=== PATIENT | female | born 1970 | race Caucasian/White ===

== ENCOUNTER 2016-05-09 11:43 | Inpatient (IN) | payer OTHER ==
[2016-05-09 12:01] VITALS: BMI 21.2
--- NOTE | 2016-05-09 13:09 | HP ---
COWS - Scale Resting Pulse: 1= [place] 81-100 Sweatin=Flushed/Facial Moisture Restless Observation: 1= Difficult to Sit Still Pupil Size: 0= Normal to Room Light Bone or Joint Aches: 2= Severe Diffuse Aches Runny Nose/ Eye Tearin= Runny Nose/Eyes GI Upset > 30mins: 1= Stomach Cramp Tremor Observation: 2= Slight Tremor Visible Yawning Observation: 2= >3x During Session Anxiety or Irritability: 2=Irritable/Anxious Goose Flesh Skin: 3=Piloerection COWS Score: 18 Admission ROS S - HPI Chief Complaint: I want to get clean. Allergies/Adverse Reactions: Allergies Allergy/AdvReac Type Severity Reaction Status Date / Time No Known Allergies Allergy Verified 05/09/16 12:52 History of Present Illness: pt is a 46yr old female with a history of heroin dependence seeking detox for treatment. Exam Limitations: No Limitations - Ebola screening Have you traveled outside of the country in the last 21 days: No Have you had contact with anyone from an Ebola affected area: No Have you been sick,other than usual withdrawal symptoms: No Do you have a fever: No - Review of Systems Constitutional: Chills, Diaphoresis, Loss of Appetite, Unintentional Wgt. Loss EENT: reports: Tearing, Nose Congestion Respiratory: reports: No Symptoms reported Cardiac: reports: No Symptoms Reported GI: reports: Poor Appetite, Poor Fluid Intake : reports: No Symptoms Reported Musculoskeletal: reports: Other (menstral pain/cramp) Integumentary: reports: Flushing, Sweating Neuro: reports: Headache, Tingling, Tremors Endocrine: reports: Excessive Sweating, Flushing, Intolerance to Cold, Intolerance to Heat Hematology: reports: No Symptoms Reported Psychiatric: reports: Judgement Intact, Mood/Affect Appropiate, Orientated x3, Agitated, Anxious Other Systems: Reviewed and Negative Patient History - Patient Medical History Hx Anemia: No Hx Asthma: No Hx Chronic Obstructive Pulmonary Disease (COPD): No Hx Cancer: No Hx Cardiac Disorders: No Hx Congestive Heart Failure: No Hx Hypertension: No Hx Hypercholesterolemia: No Hx Pacemaker: No HX Cerebrovascular Accident: No Hx Seizures: No Hx Dementia: No Hx Diabetes: No Hx Gastrointestinal Disorders: No Hx Liver Disease: No Hx Genitourinary Disorders: No Hx Sexually Transmitted Disorders: No Hx Renal Disease (ESRD): No Hx Thyroid Disease: No Hx Human Immunodeficiency Virus (HIV): No (negative) Hx Hepatitis C: No (negative) Hx Depression: Yes Hx Suicide Attempt: No (denies) Hx Bipolar Disorder: Yes Hx Schizophrenia: No - Patient Surgical History Past Surgical History: No Hx Neurologic Surgery: No Hx Cataract Extraction: No Hx Cardiac Surgery: No Hx Lung Surgery: No Hx Breast Surgery: No Hx Breast Biopsy: No Hx Abdominal Surgery: No Hx Appendectomy: No Hx Cholecystectomy: No Hx Genitourinary Surgery: No Hx Section: No Anesthesia Reaction: No - PPD History Previous Implant?: Yes Documented Results: Negative w/o proof Implanted On Prior R Admission?: No PPD to be Administered?: Yes - Reproductive History Patient is a Female of Child Bearing Age (11 -55 yrs old): Yes Last Menstrual Period: 05/07/16 Patient : No - Smoking Cessation Smoking history: Current every day smoker Have you smoked in the past 12 months: Yes Aproximately how many cigarettes per day: 10 Hx Chewing Tobacco Use: No Initiated information on smoking cessation: Yes 'Breaking Loose' booklet given: 05/09/16 - Substance & Tx. History Hx Alcohol Use: No Hx Substance Use: Yes Substance Use Type: Cocaine, Heroin Hx Substance Use Treatment: Yes - Substances Abused Heroin Route: Injection Frequency: Daily Amount used: 7-10 bags Age of first use: 45 Date of Last Use: 05/09/16 Crack Route: Smoking Frequency: 1-3 times last 30 days Amount used: $40 Age of first use: 45 Date of Last Use: 05/05/16 Family Disease History - Family Disease History Family History: Denies Admission Physical Exam S - Vital Signs Vital Signs: Vital Signs - 24 hr 05/09/16 11:55 Temperature 97.6 F Pulse Rate 86 Respiratory 18 Rate Blood Pressure 127/77 - Physical General Appearance: Yes: Appropriately Dressed, Moderate Distress, Tremorous, Irritable, Sweating, Anxious HEENTM: Yes: Hearing grossly Normal, Normal Voice Respiratory: Yes: Lungs Clear, Normal Breath Sounds, No Respiratory Distress Neck: Yes: No masses,lesions,Nodules Breast: Yes: Within Normal Limits Cardiology: Yes: Regular Rate, S1, S2 Abdominal: Yes: Normal Bowel Sounds, Non Tender, Soft Genitourinary: Yes: Within Normal Limits Back: Yes: Normal Inspection Musculoskeletal: Yes: full range of Motion, Muscle Pain Extremities: Yes: Normal Capillary Refill, Non-Tender, Tremors Neurological: Yes: Fully Oriented, Alert, Normal Response Integumentary: Yes: Normal Color, Diaphoresis, Track Jenkins Lymphatic: Yes: Within Normal Limits - Diagnostic (1) Crack cocaine use Current Visit: Yes Status: Chronic (2) Nicotine dependence Current Visit: Yes Status: Chronic Qualifiers: Nicotine product type: cigarettes Substance use status: uncomplicated Qualified Code(s): F17.210 - Nicotine dependence, cigarettes, uncomplicated (3) Opioid dependence with withdrawal Current Visit: Yes Status: Chronic Cleared for Admission [facility] - Detox or Rehab [facility] Level of Care: Medically Managed Detox Regimen/Protocol: Methadone [facility] Breath Alcohol Content Breath Alcohol Content: 0 Urine Pregancy Test - Result Urine Test Results: Negative- NO Line Present Urine Drug Screen - Results Drug Screen Negative: No Urine Drug Screen Results: TARAN-Cocaine, OPI-Opiates, MDMA-Ecstasy
[2016-05-09] MEDS ORDERED: hydrOXYzine PAMOATE 50 MG CAPSULE (FP) PO PRN (13:10)
[2016-05-09] MEDS ORDERED: IBUPROFEN 400 MG TABLET (FP) PO PRN (13:10)
[2016-05-09] MEDS ORDERED: MENTHOL/PHENOL 1 EACH UD MM PRN (13:10)
[2016-05-09] MEDS ORDERED: ACETAMINOPHEN 325 MG TABLET (FP) PO PRN (13:10)
[2016-05-09] MEDS ORDERED: NICOTINE POLACRILEX 4 MG GUM BUC PRN (13:10)
[2016-05-09] MEDS ORDERED: LOPERAMIDE HCL 2 MG CAPSULE PO PRN (13:10)
[2016-05-09] MEDS ORDERED: diphenhydrAMINE HCL 50 MG CAPSULE PO PRN (13:10)
[2016-05-09] MEDS ORDERED: guaiFENesin/D-METHORPHAN HB 10 ML UNIT-DOSE CUPS PO PRN (13:10)
[2016-05-09] MEDS ORDERED: MAGNESIUM CITRATE 300 ML BOTTLE PO PRN (13:10)
[2016-05-09] MEDS ORDERED: diazePAM 5 MG TABLET PO PRN (13:10)
[2016-05-09] MEDS ORDERED: MAG HYDROX/AL HYDROX/SIMETH 30 ML UNIT-DOSE CUP PO PRN (13:10)
[2016-05-09] MEDS ORDERED: P-EPHED 60MG/TRIPROLIDI 2.5MG TABLET PO PRN (13:10)
[2016-05-09] MEDS ORDERED: MAGNESIUM HYDROX 2400MG/30ML ORAL SUSPENSION 30 ML CUP PO PRN (13:10)
[2016-05-09] MEDS ORDERED: METHADONE HCL 10 MG TABLET (FOR DETOX USE ONLY) PO ONE ×2 (13:36→23:00)
[2016-05-09 16:02] LABS: URINE APPEARANCE TURBID; URINE BILIRUBIN NEGATIVE (NEGATIVE); URINE BLOOD 2+ (NEGATIVE); URINE COLOR DKYELLOW; URINE GLUCOSE (UA) NEGATIVE (NEGATIVE); URINE KETONE NEGATIVE (NEGATIVE); URINE LEUK ESTERASE NEGATIVE (NEGATIVE); URINE NITRITE NEGATIVE (NEGATIVE); URINE PROTEIN NEGATIVE (NEGATIVE); URINE UROBILINOGEN NEGATIVE E.U./dl (0.2-1.0)
[2016-05-09 16:14] LABS: CALCIUM OXALATE CRYSTALS RARE /hpf (NONE SEEN); URINE MUCUS MODERATE; URINE RBC 451 /hpf (0-3); URINE WBC 1 /hpf (3-5)
[2016-05-09] MEDS: THIAMINE HCL 100 MG TABLET (FP) PO SCH (22:08)
[2016-05-10 09:07] LABS: HIV 1 & 2 AB NEGATIVE; HIV 1 AGp24 NEGATIVE
--- NOTE | 2016-05-10 09:42 | PN ---
S COWS - Scale Resting Pulse: 0= [place] 80 or Below Sweatin=Flushed/Facial Moisture Restless Observation: 3= Extraneous Movement Pupil Size: 1= Pupils >than Normal Bone or Joint Aches: 2= Severe Diffuse Aches Runny Nose/ Eye Tearin= Runny Nose/Eyes GI Upset > 30mins: 2= Nausea/Diarrhea Tremor Observation of Outstretched Hands: 2= Slight Tremor Visible Yawning Observation: 1= 1-2x During Session Anxiety or Irritability: 2=Irritable/Anxious Goose Flesh Skin: 0=Smooth Skin COWS Score: 17 S Progress Note (SOAP) Subjective: ALERT,IRRITABLE,ANXIOUS,TREMOR,PAIN IN THE BODY AND BACK Objective: 05/10/16 09:40 Vital Signs Temperature 97.7 F 05/10/16 05:47 Pulse Rate 76 05/10/16 05:47 Respiratory Rate 18 05/10/16 05:47 Blood Pressure 110/77 05/10/16 05:47 O2 Sat by Pulse Oximetry (%) EKG NSR 75/MIN Laboratory Last Values Urine Color Dkyellow 05/09/16 14:00 Urine Appearance Turbid 05/09/16 14:00 Urine pH 5.0 (5.0-8.0) 05/09/16 14:00 Ur Specific [place] 1.028 (1.001-1.035) 05/09/16 14:00 Urine Protein Negative (NEGATIVE) 05/09/16 14:00 Urine Glucose (UA) Negative (NEGATIVE) 05/09/16 14:00 Urine Ketones Negative (NEGATIVE) 05/09/16 14:00 Urine Blood 2+ (NEGATIVE) H 05/09/16 14:00 Urine Nitrite Negative (NEGATIVE) 05/09/16 14:00 Urine Bilirubin Negative (NEGATIVE) 05/09/16 14:00 Urine Urobilinogen Negative E.U./dl (0.2-1.0) 05/09/16 14:00 Ur Leukocyte Esterase Negative (NEGATIVE) 05/09/16 14:00 Urine RBC 451 /hpf (0-3) 05/09/16 14:00 Urine WBC 1 /hpf (3-5) 05/09/16 14:00 Ur Epithelial Cells Rare /hpf (FEW) 05/09/16 14:00 Calcium Oxalate Crystal Rare /hpf (NONE SEEN) 05/09/16 14:00 Urine Mucus Moderate 05/09/16 14:00 Hepatitis C Antibody >11.0 s/co ratio (0.0-0.9) H 05/09/16 13:25 HIV 1&2 Antibody Screen Negative 05/09/16 13:00 HIV P24 Antigen Negative 05/09/16 13:00 LABS PENDING Assessment: 05/10/16 09:42 WITHDRAWAL SYMPTOM Plan: CONTINUE DETOX
--- NOTE | 2016-05-10 09:46 | CONSULT ---
[facility] Psychiatric Consult - Data Date of interview: 05/10/16 Admission source: [facility] Identifying data: This is 46 years old female with psychiatric hospitalization history , history of Bipolar disorder, intoxicated with: Opioids, Crack and Nicotine Substance Abuse History: - Smoking Cessation. Smoking history: Current every day smoker. Have you smoked in the past 12 months: Yes. Aproximately how many cigarettes per day: 10. Hx Chewing Tobacco Use: No. Initiated information on smoking cessation: Yes. 'Breaking Loose' booklet given: 05/09/16. - Substance & Tx. History. Hx Alcohol Use: No. Hx Substance Use: Yes. Substance Use Type : Cocaine, Heroin. Hx Substance Use Treatment: Yes. - Substances Abused. Heroin. Route: Injection. Frequency: Daily. Amount used: 7-10 bags. Age of first use: 45. Date of Last Use: 05/09/16. Crack. Route: Smoking. Frequency: 1-3 times last 30 days. Amount used: $40. Age of first use: 45. Date of Last Use: 05/05/16 Medical History: Denies significant medical issues Psychiatric History: Patient reports to carry Bipolar dsiorder with most recent psychiatric admissionon: 2010 at [facility] for [facility]. Patient rep[ orts tKING PRIOR TO ADMISSION: Lamictal 100mg poqd. Paxil 20mg poqd Physical/Sexual Abuse/Trauma History: Denies Additional Comment: Lamictal 100mg poqd. Paxil 20mg poqd Mental Status Exam - Mental Status Exam Alert and Oriented to: Person Cognitive Function: Fair Patient Appearance: Unkempt Mood: Anxious Affect: Constricted Patient Behavior: Cooperative Speech Pattern: Appropriate Voice Loudness: Normal Thought Process: Goal Oriented Thought Disorder: Being Controlled Hallucinations: Denies Suicidal Ideation: Denies Homicidal Ideation: Denies Insight/Judgement: Fair Sleep: Difficulty falling asleep Appetite: Weight loss Muscle strength/Tone: Normal Gait/Station: Normal Additional Comments: Lamictal 100mg poqd. Paxil 20mg poqd Psychiatric Findings - Problem List ([place] 1, 2,3) (1) Crack cocaine use Current Visit: Yes Status: Chronic (2) Nicotine dependence Current Visit: Yes Status: Chronic Qualifiers: Nicotine product type: cigarettes Substance use status: uncomplicated Qualified Code(s): F17.210 - Nicotine dependence, cigarettes, uncomplicated (3) Opioid dependence with withdrawal Current Visit: Yes Status: Chronic (4) Bipolar disorder Current Visit: Yes Status: Acute (5) Drug-induced mood disorder Current Visit: Yes Status: Acute - Initial Treatment Plan Initial Treatment Plan: Lamictal 100mg poqd. Paxil 20mg poqd
[2016-05-10] MEDS ORDERED: METHADONE HCL 10 MG TABLET (FOR DETOX USE ONLY) PO ONE (10:00)
[2016-05-10] MEDS: PRENATAL VITAMINS W/ FOLIC ACID TABLET (FP) PO SCH (10:11)
[2016-05-10] MEDS: NICOTINE 21 MG/24 HOURS TOPICAL PATCH TD SCH (10:12)
[2016-05-10] MEDS: PARoxetine HCL 20 MG TABLET (FP) PO SCH (10:12)
[2016-05-10 10:33] LABS: MCH 29.6 pg (25.7-33.7); MCHC 32.5 g/dl (32.0-36.0); MEAN CELL VOLUME 91.2 fl (80-96); MEAN PLT VOLUME 11.3 fl (7.5-11.1); PLATELET COUNT 350 K/MM3 (134-434); RDW 14.3 % (11.6-15.6); WHITE BLOOD COUNT 7.1 K/mm3 (4.0-10.0)
[2016-05-10 10:48] LABS: ALBUMIN 3.6 g/dl (3.4-5.0); ALK PHOS 77 U/L (45-117); ANION GAP 11 (8-16); BILIRUBIN,TOTAL 0.3 mg/dL (0.2-1.0); CALCIUM 9.3 mg/dL (8.5-10.1); CO2 24 mmol/L (21-32); CREATININE 0.7 mg/dL (0.55-1.02); GLUCOSE,RANDOM 148 mg/dL (74-106); SGOT/AST 13 U/L (15-37); SGPT/ALT 17 U/L (12-78); TOT PROT 7.1 g/dl (6.4-8.2)
[2016-05-10] MEDS: lamoTRIgine 100 MG TABLET (FP) PO SCH (11:08)
--- NOTE | 2016-05-10 13:35 | EKG ---
Test Reason : Blood Pressure : / mmHG Vent. Rate : 075 BPM Atrial Rate : 075 BPM P-R Int : 154 ms QRS Dur : 076 ms QT Int : 384 ms P-R-T Axes : 069 -10 058 degrees QTc Int : 428 ms NORMAL SINUS RHYTHM POSSIBLE LEFT ATRIAL ENLARGEMENT LOW VOLTAGE QRS BORDERLINE ECG NO PREVIOUS ECGS AVAILABLE Confirmed by ALEKSANDR DUPREE MD ([id number]) on 05/10/2016 1:35:36 PM Referred By: Confirmed By:ALKESANDR DUPREE MD
[2016-05-10] MEDS: THIAMINE HCL 100 MG TABLET (FP) PO SCH (22:13)
[2016-05-11] MEDS ORDERED: METHADONE HCL 5 MG TABLET (FOR DETOX USE ONLY) PO ONE (10:00)
[2016-05-11] MEDS: PRENATAL VITAMINS W/ FOLIC ACID TABLET (FP) PO SCH (11:03)
[2016-05-11] MEDS: PARoxetine HCL 20 MG TABLET (FP) PO SCH (11:05)
[2016-05-11] MEDS: lamoTRIgine 100 MG TABLET (FP) PO SCH (11:05)
[2016-05-11] MEDS: NICOTINE 21 MG/24 HOURS TOPICAL PATCH TD SCH (11:07)
--- NOTE | 2016-05-11 14:17 | PN ---
S COWS - Scale Resting Pulse: 0= [place] 80 or Below Sweatin=Flushed/Facial Moisture Restless Observation: 1= Difficult to Sit Still Pupil Size: 0= Normal to Room Light Bone or Joint Aches: 1= Mild Discomfort Runny Nose/ Eye Tearin= Nasal Congestion GI Upset > 30mins: 1= Stomach Cramp Tremor Observation of Outstretched Hands: 1= Tremor [place], Not Seen Yawning Observation: 1= 1-2x During Session Anxiety or Irritability: 2=Irritable/Anxious Goose Flesh Skin: 3=Piloerection COWS Score: 13 S Progress Note (SOAP) Subjective: agitation anxiety sweats irritable interrupted sleep Objective: 05/11/16 14:15 Vital Signs Temperature 97.5 F L 05/11/16 06:20 Pulse Rate 70 05/11/16 06:20 Respiratory Rate 18 05/11/16 06:20 Blood Pressure 130/70 05/11/16 06:20 O2 Sat by Pulse Oximetry (%) Laboratory Tests 05/09/16 05/09/16 05/09/16 13:00 13:25 14:00 WBC RBC Hgb Hct MCV MCHC RDW Plt Count MPV Sodium Potassium Chloride Carbon Dioxide Anion Gap BUN Creatinine Creat Clearance w eGFR Random Glucose Calcium Total Bilirubin AST ALT Alkaline Phosphatase Total Protein Albumin Urine Color Dkyellow Urine Appearance Turbid Urine pH 5.0 Ur Specific [place] 1.028 Urine Protein Negative Urine Glucose (UA) Negative Urine Ketones Negative Urine Blood 2+ H Urine Nitrite Negative Urine Bilirubin Negative Urine Urobilinogen Negative Ur Leukocyte Esterase Negative Urine RBC 451 Urine WBC 1 Ur Epithelial Cells Rare Calcium Oxalate Crystal Rare Urine Mucus Moderate RPR Titer Hepatitis C Antibody >11.0 H HIV 1&2 Antibody Screen Negative HIV P24 Antigen Negative 05/10/16 05/10/16 05/10/16 06:00 06:00 06:00 WBC 7.1 RBC 4.45 Hgb 13.2 Hct 40.6 MCV 91.2 MCHC 32.5 RDW 14.3 Plt Count 350 MPV 11.3 H Sodium 139 Potassium 4.5 Chloride 104 Carbon Dioxide 24 Anion Gap 11 BUN 14 Creatinine 0.7 Creat Clearance w eGFR > 60 Random Glucose 148 H Calcium 9.3 Total Bilirubin 0.3 AST 13 L ALT 17 Alkaline Phosphatase 77 Total Protein 7.1 Albumin 3.6 Urine Color Urine Appearance Urine pH Ur Specific [place] Urine Protein Urine Glucose (UA) Urine Ketones Urine Blood Urine Nitrite Urine Bilirubin Urine Urobilinogen Ur Leukocyte Esterase Urine RBC Urine WBC Ur Epithelial Cells Calcium Oxalate Crystal Urine Mucus RPR Titer Nonreactive Hepatitis C Antibody HIV 1&2 Antibody Screen HIV P24 Antigen awake/alert ambulation no acute distress Assessment: 05/11/16 14:24 withdrawal sx Plan: continue detox increase fluids
[2016-05-11] MEDS: THIAMINE HCL 100 MG TABLET (FP) PO SCH (22:32)
[2016-05-12] MEDS ORDERED: METHADONE HCL 5 MG TABLET (FOR DETOX USE ONLY) PO ONE (10:00)
[2016-05-12] MEDS: PRENATAL VITAMINS W/ FOLIC ACID TABLET (FP) PO SCH (10:33)
[2016-05-12] MEDS: lamoTRIgine 100 MG TABLET (FP) PO SCH (10:33)
[2016-05-12] MEDS: PARoxetine HCL 20 MG TABLET (FP) PO SCH (10:33)
[2016-05-12] MEDS: NICOTINE 21 MG/24 HOURS TOPICAL PATCH TD SCH (11:11)
--- NOTE | 2016-05-12 11:50 | PN ---
[facility] Progress Note (SOAP) Subjective: irritable agitation sweats interrupted sleep Objective: 05/12/16 11:50 Vital Signs Temperature 97.8 F 05/12/16 10:38 Pulse Rate 75 05/12/16 10:38 Respiratory Rate 18 05/12/16 10:38 Blood Pressure 116/71 05/12/16 10:38 O2 Sat by Pulse Oximetry (%) Assessment: 05/12/16 11:50 withdrawal sx Plan: continue detox increase fluids
[2016-05-12] MEDS: THIAMINE HCL 100 MG TABLET (FP) PO SCH (22:17)
[2016-05-13] MEDS ORDERED: METHADONE HCL 10 MG TABLET (FOR DETOX USE ONLY) PO ONE (10:00)
[2016-05-13] MEDS: PRENATAL VITAMINS W/ FOLIC ACID TABLET (FP) PO SCH (10:41)
[2016-05-13] MEDS: lamoTRIgine 100 MG TABLET (FP) PO SCH (10:41)
[2016-05-13] MEDS: PARoxetine HCL 20 MG TABLET (FP) PO SCH (10:41)
[2016-05-13] MEDS: NICOTINE 21 MG/24 HOURS TOPICAL PATCH TD SCH (10:43)
--- NOTE | 2016-05-13 13:14 | PN ---
S Progress Note (SOAP) Subjective: ALERT,IRRITABLE,ANXIOUS,INTERRUPTED SLEEP Objective: 05/13/16 13:09 Vital Signs Temperature 97.7 F 05/13/16 09:44 Pulse Rate 75 05/13/16 09:44 Respiratory Rate 16 05/13/16 09:44 Blood Pressure 141/73 05/13/16 09:44 O2 Sat by Pulse Oximetry (%) Assessment: 05/13/16 13:15 WITHDRAWAL SYMPTOM Plan: CONTINUE DETOX,ADDRESS WITH PATIENT FOR HEPATITIC POSITVE,PATIENT IS AWARED, ADVISE PATIENT TO SEE HER PRIMARY CARE PHYSICIAN FOR EVALUATION AND FOLLOW UP UPON DISCHARGE
[2016-05-13] MEDS: THIAMINE HCL 100 MG TABLET (FP) PO SCH (22:49)
[2016-05-14] MEDS ORDERED: METHADONE HCL 5 MG TABLET (FOR DETOX USE ONLY) PO ONE (06:00)
[2016-05-14 07:07] VITALS: TEMP 97.9
--- NOTE | 2016-05-14 09:55 | DS ---
[facility] Detox Discharge Summary Admission Date: 05/09/16 Discharge Date: 05/14/16 - History Present History: Opioid Dependence Pertinent Past History: mood disorder - Physical Exam Results Vital Signs: Vital Signs Temperature 97.9 F 05/14/16 06:00 Pulse Rate 57 L 05/14/16 06:00 Respiratory Rate 16 05/14/16 06:00 Blood Pressure 110/61 05/14/16 06:00 O2 Sat by Pulse Oximetry (%) Pertinent Admission Physical Exam Findings: Withdrawal sx. Laboratory Last Values WBC 7.1 K/mm3 (4.0-10.0) 05/10/16 06:00 RBC 4.45 M/mm3 (3.60-5.2) 05/10/16 06:00 Hgb 13.2 GM/dL (10.7-15.3) 05/10/16 06:00 Hct 40.6 % (32.4-45.2) 05/10/16 06:00 MCV 91.2 fl (80-96) 05/10/16 06:00 MCHC 32.5 g/dl (32.0-36.0) 05/10/16 06:00 RDW 14.3 % (11.6-15.6) 05/10/16 06:00 Plt Count 350 K/MM3 (134-434) 05/10/16 06:00 MPV 11.3 fl (7.5-11.1) H 05/10/16 06:00 Sodium 139 mmol/L (136-145) 05/10/16 06:00 Potassium 4.5 mmol/L (3.5-5.1) 05/10/16 06:00 Chloride 104 mmol/L (98-107) 05/10/16 06:00 Carbon Dioxide 24 mmol/L (21-32) 05/10/16 06:00 Anion Gap 11 (8-16) 05/10/16 06:00 BUN 14 mg/dL (7-18) 05/10/16 06:00 Creatinine 0.7 mg/dL (0.55-1.02) 05/10/16 06:00 Creat Clearance w eGFR > 60 (>60) 05/10/16 06:00 Random Glucose 148 mg/dL (74-106) H 05/10/16 06:00 Calcium 9.3 mg/dL (8.5-10.1) 05/10/16 06:00 Total Bilirubin 0.3 mg/dL (0.2-1.0) 05/10/16 06:00 AST 13 U/L (15-37) L 05/10/16 06:00 ALT 17 U/L (12-78) 05/10/16 06:00 Alkaline Phosphatase 77 U/L (45-117) 05/10/16 06:00 Total Protein 7.1 g/dl (6.4-8.2) 05/10/16 06:00 Albumin 3.6 g/dl (3.4-5.0) 05/10/16 06:00 Urine Color Dkyellow 05/09/16 14:00 Urine Appearance Turbid 05/09/16 14:00 Urine pH 5.0 (5.0-8.0) 05/09/16 14:00 Ur Specific [place] 1.028 (1.001-1.035) 05/09/16 14:00 Urine Protein Negative (NEGATIVE) 05/09/16 14:00 Urine Glucose (UA) Negative (NEGATIVE) 05/09/16 14:00 Urine Ketones Negative (NEGATIVE) 05/09/16 14:00 Urine Blood 2+ (NEGATIVE) H 05/09/16 14:00 Urine Nitrite Negative (NEGATIVE) 05/09/16 14:00 Urine Bilirubin Negative (NEGATIVE) 05/09/16 14:00 Urine Urobilinogen Negative E.U./dl (0.2-1.0) 05/09/16 14:00 Ur Leukocyte Esterase Negative (NEGATIVE) 05/09/16 14:00 Urine RBC 451 /hpf (0-3) 05/09/16 14:00 Urine WBC 1 /hpf (3-5) 05/09/16 14:00 Ur Epithelial Cells Rare /hpf (FEW) 05/09/16 14:00 Calcium Oxalate Crystal Rare /hpf (NONE SEEN) 05/09/16 14:00 Urine Mucus Moderate 05/09/16 14:00 RPR Titer Nonreactive (NONREACTIVE) 05/10/16 06:00 Hepatitis C Antibody >11.0 s/co ratio (0.0-0.9) H 05/09/16 13:25 HCV Quantitation Hcv not detected IU/mL (.) 05/10/16 10:30 HCV RNA (PCR) IUs/ml Y 02/08/17 10:30 HCV Liver Fibrosis Test TNP 05/10/16 10:30 HIV 1&2 Antibody Screen Negative 05/09/16 13:00 HIV P24 Antigen Negative 05/09/16 13:00 labs noted - Treatment Hospital Course: Detox Protocol Followed, Detoxed Safely, Responded well, Discharged Condition Good, Rehab Referral Accepted - Medication Discharge Medications: Ambulatory Orders Lamotrigine [LaMICtal -] 100 mg PO DAILY #30 tablet 05/10/16 Paroxetine HCl [Paxil -] 20 mg PO DAILY #30 tablet 05/10/16 - Diagnosis (1) Bipolar disorder Current Visit: Yes Status: Acute (2) Drug-induced mood disorder Current Visit: Yes Status: Acute (3) Crack cocaine use Current Visit: Yes Status: Chronic (4) Nicotine dependence Current Visit: Yes Status: Chronic Qualifiers: Nicotine product type: cigarettes Substance use status: uncomplicated Qualified Code(s): F17.210 - Nicotine dependence, cigarettes, uncomplicated (5) Opioid dependence with withdrawal Current Visit: Yes Status: Chronic - AMA Did Patient Leave Against Medical Advice: No
[2016-05-14] MEDS: lamoTRIgine 100 MG TABLET (FP) PO SCH (10:05)
[2016-05-14] MEDS: PRENATAL VITAMINS W/ FOLIC ACID TABLET (FP) PO SCH (10:05)
[2016-05-14] MEDS: NICOTINE 21 MG/24 HOURS TOPICAL PATCH TD SCH (10:05)
[2016-05-14] MEDS: PARoxetine HCL 20 MG TABLET (FP) PO SCH (10:05)
[2016-05-14 10:53] VITALS: BP 115/69; PULSE 67
== END 2016-05-14 10:20 | disposition other institution (70) | DRG 773 ==
LOC: YASAS 11:43 → Y6N 13:24
PROVIDERS: ADMIT Internal Medicine; ATTEND Internal Medicine
PROC: HZ2ZZZZ Detoxification Services for Substance Abuse Treatment (ICD-10-PCS; principal; 2016-05-14)
DX: F11.23 Opioid dependence with withdrawal (principal); F17.210 Nicotine dependence, cigarettes, uncomplicated; F14.10 Cocaine abuse, uncomplicated; F31.9 Bipolar disorder, unspecified
CPT/HCPCS: 36415; 80053; 81003; 81015; 85027; 86593; 87389; 87522; 93005; 93010

== ENCOUNTER 2016-05-14 10:26 | Inpatient (IN) | payer OTHER ==
[2016-05-14 11:32] VITALS: BMI 21.1
[2016-05-14] MEDS ORDERED: guaiFENesin/D-METHORPHAN HB 10 ML UNIT-DOSE CUPS PO PRN (12:38)
[2016-05-14] MEDS ORDERED: NICOTINE POLACRILEX 2 MG GUM BUC PRN (12:38)
[2016-05-14] MEDS ORDERED: MAGNESIUM HYDROX 2400MG/30ML ORAL SUSPENSION 30 ML CUP PO PRN (12:38)
[2016-05-14] MEDS ORDERED: ACETAMINOPHEN 325 MG TABLET (FP) PO PRN (12:38)
[2016-05-14] MEDS ORDERED: diphenhydrAMINE HCL 50 MG CAPSULE PO PRN (12:38)
[2016-05-14] MEDS ORDERED: MAG HYDROX/AL HYDROX/SIMETH 30 ML UNIT-DOSE CUP PO PRN (12:38)
[2016-05-14] MEDS ORDERED: LOPERAMIDE HCL 2 MG CAPSULE PO PRN (12:38)
[2016-05-14] MEDS ORDERED: MAGNESIUM CITRATE 300 ML BOTTLE PO PRN (12:38)
[2016-05-14] MEDS ORDERED: P-EPHED 60MG/TRIPROLIDI 2.5MG TABLET PO PRN (12:38)
[2016-05-14] MEDS ORDERED: MENTHOL/PHENOL 1 EACH UD MM PRN (12:38)
--- NOTE | 2016-05-14 12:39 | HP ---
[facility] Rehab Assess/Revision - Admission History Admitted to Rehab from: [facility] Date of Admission to Rehab: 05/14/16 - Vital signs Vital Signs: Vital Signs Period Temp Pulse Resp BP Sys/Bruno Pulse Ox Last 24 Hr 97.6 F-97.6 F 68-68 16-16 115-115/73-73 - Findings Detox History & Physical reviewed: Yes Concur with findings: Yes
[2016-05-14] MEDS: THIAMINE HCL 100 MG TABLET (FP) PO SCH (21:40)
[2016-05-15] MEDS ORDERED: PARoxetine HCL 20 MG TABLET (FP) PO SCH (10:00)
--- NOTE | 2016-05-15 10:25 | HP ---
Psychiatrist Admission - Data Date of interview: 05/15/16 Admission source: [address] [place] [address] detox Identifying data: This is the [facility] admission [facility] [address] [place] [address] [facility] 46 [facility] single female,no children, [facility],domiciled. Medical History: unremarkable Psychiatric History: Patient reports first contact with psychiatrist in 1996 to address her mood instability while visiting her friends in [place].She was placed on Zoloft with some response.[place] [facility] [place] [facility] [place] where she was dx with Bipolar disoredr.Next admission was in 2010 due to DOD.PAtient reports a few more psychiatric hospitalizations.Most recent was a few years ago.Follow up by psychiatrist at [facility] in the [place].Stopped taking her medications 2-3 moths ago when relapsed.Restarted Lamictal 100 mg po hs and Paxil 20 mg po daily while in detox on [address] [place] [address] last week.REports that her Paxil dose was much higher. Physical/Sexual Abuse/Trauma History: denies Vital Signs: Vital Signs - 24 hr 05/14/16 05/14/16 05/15/16 10:46 11:29 03:30 Temperature 97.6 F 97.6 F Pulse Rate 68 68 Respiratory 16 16 16 Rate Blood Pressure 115/73 115/73 05/15/16 07:29 Temperature 97.7 F Pulse Rate 76 Respiratory 18 Rate Blood Pressure 118/84 Allergies/Adverse Reactions: Allergies Allergy/AdvReac Type Severity Reaction Status Date / Time No Known Allergies Allergy Verified 05/09/16 12:52 Date of last physical exam: 05/09/16 Concur with the findings of this exam: Yes - Substance Abuse/Tx History Hx Alcohol Use: Yes (in remission for 1 year) Hx Substance Use: Yes (cocaine since 21 yo,crack since last year,heroin since 2015) Substance Use Type: Alcohol, Cocaine, Heroin Hx Substance Use Treatment: Yes (completed 28 days in 2012) - Admission Criteria Previous failed treatment: Yes Poor recovery environment: Yes Comorbidities: Yes Lacks judgement: Yes Mental Status Exam - Mental Status Exam Alert and Oriented to: Time, Place, Person Cognitive Function: Grossly Intact Patient Appearance: Unkempt Mood: Depressed, Sad, Irritable Affect: Mood Congruent, Labile Patient Behavior: Cooperative Speech Pattern: Clear Voice Loudness: Normal, Mildly Loud Thought Process: Goal Oriented Thought Disorder: Being Controlled Hallucinations: Denies Suicidal Ideation: Denies Homicidal Ideation: Denies Insight/Judgement: Fair Sleep: Fair Appetite: Fair Muscle strength/Tone: Normal Gait/Station: Normal Psychiatric Findings - Problem List ([place] 1, 2,3) (1) Bipolar disorder Current Visit: Yes Status: Chronic (2) Crack cocaine use Current Visit: Yes Status: Chronic (3) Nicotine dependence Current Visit: Yes Status: Chronic Qualifiers: (4) Opioid dependence with withdrawal Current Visit: Yes Status: Chronic - Initial Treatment Plan Initial Treatment Plan: Will monitor progress.
[2016-05-15] MEDS: lamoTRIgine 100 MG TABLET (FP) PO SCH (10:44)
[2016-05-15] MEDS: NICOTINE 21 MG/24 HOURS TOPICAL PATCH TD SCH (10:44)
[2016-05-15] MEDS: PRENATAL VITAMINS W/ FOLIC ACID TABLET (FP) PO SCH (10:44)
[2016-05-15] MEDS: THIAMINE HCL 100 MG TABLET (FP) PO SCH (22:07)
[2016-05-16] MEDS: PARoxetine HCL 10 MG TABLET (FP) PO SCH (10:24)
[2016-05-16] MEDS: PRENATAL VITAMINS W/ FOLIC ACID TABLET (FP) PO SCH (10:24)
[2016-05-16] MEDS: NICOTINE 21 MG/24 HOURS TOPICAL PATCH TD SCH (10:25)
[2016-05-16] MEDS: lamoTRIgine 100 MG TABLET (FP) PO SCH (10:25)
[2016-05-16] MEDS: THIAMINE HCL 100 MG TABLET (FP) PO SCH (21:44)
[2016-05-17] MEDS: PRENATAL VITAMINS W/ FOLIC ACID TABLET (FP) PO SCH (10:15)
[2016-05-17] MEDS: NICOTINE 21 MG/24 HOURS TOPICAL PATCH TD SCH (10:16)
[2016-05-17] MEDS: lamoTRIgine 100 MG TABLET (FP) PO SCH ×2 (10:16→21:46)
[2016-05-17] MEDS: PARoxetine HCL 10 MG TABLET (FP) PO SCH (10:16)
--- NOTE | 2016-05-17 13:44 | PN ---
Psychiatric Progress Note Vital Signs: Vital Signs Period Temp Pulse Resp BP Sys/Bruno Pulse Ox Last 24 Hr 97.9 F 71 16-18 120/80 Date of Session: 05/17/16 Chief Complaint:: "I want to be transferred from here." HPI: Patient addressed Cocaine and Opioid dependence comorbid with Bipolar disorder. Current Medications: Active Medications Generic Name Dose Route Start Last Admin Trade Name Freq PRN Reason Stop Dose Admin Acetaminophen 650 mg 05/14/16 12:38 Tylenol - PO Q4H PRN FEVER OR PAIN Al Hydroxide/Mg Hydroxide 30 ml 05/14/16 12:38 Mylanta Oral Suspension - PO Q6H PRN DYSPEPSIA Diphenhydramine HCl 50 mg 05/14/16 12:38 Benadryl - PO HSMR1 PRN FOR ITCHING Eucalyptus/Menthol/Phenol/Sorbitol 1 each 05/14/16 12:38 Cepastat Lozenge - MM Q4H PRN SORE THROAT Guaifenesin 10 ml 05/14/16 12:38 Robitussin Dm - PO Q6H PRN COUGH Ibuprofen 400 mg 05/14/16 12:38 Motrin - PO Q6H PRN PAIN Lamotrigine 100 mg 05/17/16 22:00 Lamictal - PO BID SLICK Loperamide HCl 4 mg 05/14/16 12:38 Imodium - PO Q6H PRN DIARRHEA Magnesium Hydroxide 30 ml 05/14/16 12:38 Milk Of Magnesia - PO DAILY PRN CONSTIPATION Nicotine 21 mg 05/15/16 10:00 05/17/16 10:16 Nicoderm Patch - TD Not Given DAILY SLICK Nicotine Polacrilex 2 mg 05/14/16 12:38 Nicorette Gum - BUC Q2H PRN NICOTINE REPLACEMENT RX Paroxetine HCl 30 mg 05/16/16 10:00 05/17/16 10:16 Paxil - PO 30 mg DAILY SLICK Administration Multivit/Folic Acid/Iron 1 tab 05/15/16 10:00 05/17/16 10:15 Vitamins (Sjr) - PO 1 tab DAILY SLICK Administration Pseudoephedrine/Triprolidine 1 combo 05/14/16 12:38 Actifed - PO TID PRN NASAL CONGESTION Thiamine HCl 100 mg 05/14/16 22:00 05/16/16 21:44 Vitamin B1 - PO Not Given [facility] Current Side Effect: No Lab tests ordered: No Lab tests reviewed: Yes Provider note:: PAtient was invited for the meeting with psychiatrist,clinical superviser and her counselour to discuss her demand to be transferred to different place.According to the patient she doesnt want to stay in this unit since there is limited space for walk,also she doesnt like to stay with women.Patient became extremely hostile,loud,irritable.She also called her counselour "racist" stating "she doesnt like her and is not talking to her". Patient was explained that we cannot transferred to [facility] since there are no beds available and also she needs to give serious reason to be transferred to different unit at the same facility. Patient was told that her behavior is not acceptable and she will be discharged administratively.Then she changed her mind and apologised,stating that she is willing to stay and continue treatment in this unit. Total face to face time:: 40 Mental Status Exam - Mental Status Exam Alert and Oriented to: Time, Place, Person Cognitive Function: Grossly Intact Patient Appearance: Unkempt Mood: Angry, Hostile, Anxious, Apprehensive, Irritable Affect: Labile Patient Behavior: Aggressive, Restless, Guarded, Belligerent, Impulsive Speech Pattern: Excessive Voice Loudness: Mildly Loud Thought Process: Goal Oriented Thought Disorder: Not Present Hallucinations: Denies Suicidal Ideation: Denies Homicidal Ideation: Denies Insight/Judgement: Impaired Sleep: Difficulty falling asleep Appetite: Good Muscle strength/Tone: Normal Gait/Station: Normal Psychiatric Treatment Plan - Problem List (1) Bipolar disorder Current Visit: Yes (2) Crack cocaine use Current Visit: Yes (3) Nicotine dependence Current Visit: Yes Qualifiers: (4) Opioid dependence with withdrawal Current Visit: Yes
[2016-05-17] MEDS: AMITRIPTYLINE HCL 25 MG TABLET (FP) PO SCH ×2 (15:12→21:46)
[2016-05-17] MEDS: THIAMINE HCL 100 MG TABLET (FP) PO SCH (21:46)
[2016-05-18] MEDS: AMITRIPTYLINE HCL 25 MG TABLET (FP) PO SCH ×3 (06:23→23:07)
[2016-05-18] MEDS: PRENATAL VITAMINS W/ FOLIC ACID TABLET (FP) PO SCH (10:35)
[2016-05-18] MEDS: PARoxetine HCL 10 MG TABLET (FP) PO SCH (10:35)
[2016-05-18] MEDS: lamoTRIgine 100 MG TABLET (FP) PO SCH ×2 (10:35→23:07)
[2016-05-18] MEDS: NICOTINE 21 MG/24 HOURS TOPICAL PATCH TD SCH (10:35)
[2016-05-18] MEDS: THIAMINE HCL 100 MG TABLET (FP) PO SCH (23:07)
[2016-05-19] MEDS: AMITRIPTYLINE HCL 25 MG TABLET (FP) PO SCH (06:32)
[2016-05-19] MEDS: lamoTRIgine 100 MG TABLET (FP) PO SCH ×2 (11:00→21:48)
[2016-05-19] MEDS: PRENATAL VITAMINS W/ FOLIC ACID TABLET (FP) PO SCH (11:00)
[2016-05-19] MEDS: PARoxetine HCL 10 MG TABLET (FP) PO SCH (11:00)
[2016-05-19] MEDS: NICOTINE 21 MG/24 HOURS TOPICAL PATCH TD SCH (11:04)
[2016-05-19] MEDS: LURASIDONE HCL 20 MG TABLET PO SCH (12:21)
[2016-05-19] MEDS ORDERED: PT OWN MED DRAWER 7, Y5N ONE (12:22)
[2016-05-19] MEDS: THIAMINE HCL 100 MG TABLET (FP) PO SCH (21:48)
[2016-05-20] MEDS: PARoxetine HCL 10 MG TABLET (FP) PO SCH (10:26)
[2016-05-20] MEDS: PRENATAL VITAMINS W/ FOLIC ACID TABLET (FP) PO SCH (10:26)
[2016-05-20] MEDS: lamoTRIgine 100 MG TABLET (FP) PO SCH ×2 (10:26→22:50)
[2016-05-20] MEDS: LURASIDONE HCL 20 MG TABLET PO SCH (10:28)
[2016-05-20] MEDS: NICOTINE 21 MG/24 HOURS TOPICAL PATCH TD SCH (10:28)
[2016-05-20] MEDS ORDERED: PT OWN MED DRAWER 7, Y5N ONE (10:29)
[2016-05-20] MEDS: THIAMINE HCL 100 MG TABLET (FP) PO SCH (22:49)
[2016-05-21] MEDS ORDERED: PT OWN MED DRAWER 7, Y5N ONE (09:37)
[2016-05-21] MEDS: PARoxetine HCL 10 MG TABLET (FP) PO SCH (10:18)
[2016-05-21] MEDS: PRENATAL VITAMINS W/ FOLIC ACID TABLET (FP) PO SCH (10:18)
[2016-05-21] MEDS: LURASIDONE HCL 20 MG TABLET PO SCH (10:19)
[2016-05-21] MEDS: lamoTRIgine 100 MG TABLET (FP) PO SCH ×2 (10:19→21:46)
[2016-05-21] MEDS: NICOTINE 21 MG/24 HOURS TOPICAL PATCH TD SCH (10:20)
--- NOTE | 2016-05-21 13:17 | PN ---
[facility] Progress Note Note: Psychiatry Attending's on-call note : Called to address complaint of acute anxiety. From 46 y/o female with bipolar disorder. Co-morbid with opioid/cocaine/nicotine dependence. Previous charts reviewed.Dr Negron's notes appreciated. Medications revisited,including recent pharmacy claims. Brief contact with patient via telephone.History taken. " I feel anxious and jittery.I have difficulty concentrating." Unremarkable medical history.Patient endorses good general health. Noted recent addition of latuda to the regimen.Normal vitals. Plan : .Reassurance provided to the patient .Medications discussed .Hydroxyzine 25 mg po q 6 hours prn .Brief review of side effects/benefits .Patient agrees with this careplan .Discussed with nurse in charge.
[2016-05-21] MEDS: hydrOXYzine PAMOATE 25 MG CAPSULE (FP) PO PRN ×2 (13:36→19:51)
[2016-05-21] MEDS: THIAMINE HCL 100 MG TABLET (FP) PO SCH (21:46)
[2016-05-22] MEDS: hydrOXYzine PAMOATE 25 MG CAPSULE (FP) PO PRN ×2 (06:30→12:31)
[2016-05-22] MEDS ORDERED: PT OWN MED DRAWER 7, Y5N ONE (09:04)
[2016-05-22] MEDS: PRENATAL VITAMINS W/ FOLIC ACID TABLET (FP) PO SCH (10:12)
[2016-05-22] MEDS: LURASIDONE HCL 20 MG TABLET PO SCH (10:12)
[2016-05-22] MEDS: lamoTRIgine 100 MG TABLET (FP) PO SCH ×2 (10:12→21:43)
[2016-05-22] MEDS: NICOTINE 21 MG/24 HOURS TOPICAL PATCH TD SCH (10:12)
[2016-05-22] MEDS: PARoxetine HCL 10 MG TABLET (FP) PO SCH (10:25)
--- NOTE | 2016-05-22 14:08 | PN ---
Psychiatric Progress Note Vital Signs: Vital Signs Period Temp Pulse Resp BP Sys/Bruno Pulse Ox Last 24 Hr 97.2 F 89 16-18 130/84 Date of Session: 05/22/16 Chief Complaint:: Feeling Jittery, restless HPI: Patient addressed Cocaine and Opioid dependence comorbid with Bipolar disorder. Current Medications: Active Medications Generic Name Dose Route Start Last Admin Trade Name Freq PRN Reason Stop Dose Admin Acetaminophen 650 mg 05/14/16 12:38 Tylenol - PO Q4H PRN FEVER OR PAIN Al Hydroxide/Mg Hydroxide 30 ml 05/14/16 12:38 Mylanta Oral Suspension - PO Q6H PRN DYSPEPSIA Diphenhydramine HCl 50 mg 05/14/16 12:38 Benadryl - PO HSMR1 PRN FOR ITCHING Eucalyptus/Menthol/Phenol/Sorbitol 1 each 05/14/16 12:38 Cepastat Lozenge - MM Q4H PRN SORE THROAT Guaifenesin 10 ml 05/14/16 12:38 Robitussin Dm - PO Q6H PRN COUGH Hydroxyzine Pamoate 25 mg 05/21/16 13:05 05/22/16 12:31 Vistaril - PO 25 mg Q6H PRN Administration FOR ITCHING Ibuprofen 400 mg 05/14/16 12:38 Motrin - PO Q6H PRN PAIN Lamotrigine 100 mg 05/17/16 22:00 05/22/16 10:12 Lamictal - PO 100 mg BID SLICK Administration Loperamide HCl 4 mg 05/14/16 12:38 Imodium - PO Q6H PRN DIARRHEA Lurasidone HCl 20 mg 05/19/16 11:00 05/22/16 10:12 Latuda - PO 20 mg DAILY SLICK Administration Magnesium Hydroxide 30 ml 05/14/16 12:38 Milk Of Magnesia - PO DAILY PRN CONSTIPATION Nicotine 21 mg 05/15/16 10:00 05/22/16 10:12 Nicoderm Patch - TD Not Given DAILY SLIKC Nicotine Polacrilex 2 mg 05/14/16 12:38 Nicorette Gum - BUC Q2H PRN NICOTINE REPLACEMENT RX Paroxetine HCl 30 mg 05/16/16 10:00 05/22/16 10:25 Paxil - PO 30 mg DAILY SLICK Administration Multivit/Folic Acid/Iron 1 tab 05/15/16 10:00 05/22/16 10:12 Vitamins (Sjr) - PO 1 tab DAILY SLICK Administration Pseudoephedrine/Triprolidine 1 combo 05/14/16 12:38 Actifed - PO TID PRN NASAL CONGESTION Thiamine HCl 100 mg 05/14/16 22:00 05/21/16 21:46 Vitamin B1 - PO 100 mg HS SLICK Administration Medication(s) Change(s): 1) Discontinue Latuda. 2) Increase Vistaril dosage to 50 mg po Q 6 hrs prn for anxiety Current Side Effect: Yes (feeling jittery, restless, unable to sit still) Provider note:: Patient reports that she has been feeling restless, jittery and unable to sit still for the past 3 days. Yesterday, she has the same complants and ws placed on Vistaril 25 mg Q 6hrs without any relief. Patient was started on Latuda 20 mg po daily on 05/19/14. She most likely experiences Akathesia from Latuda Total face to face time:: 25 Mental Status Exam - Mental Status Exam Alert and Oriented to: Time, Place, Person Cognitive Function: Fair Patient Appearance: Well Groomed Mood: Anxious Affect: Appropriate Patient Behavior: Restless Speech Pattern: Clear Voice Loudness: Normal Thought Process: Intact Thought Disorder: Not Present Hallucinations: Denies Suicidal Ideation: Denies Homicidal Ideation: Denies Insight/Judgement: Fair Sleep: Fair Appetite: Good Muscle strength/Tone: Normal Gait/Station: Normal Psychiatric Treatment Plan - Problem List (1) Opioid dependence with withdrawal Current Visit: Yes (2) Cocaine abuse Current Visit: Yes (3) Nicotine dependence Current Visit: Yes Qualifiers: (4) Bipolar disorder Current Visit: Yes Initial treatment plan: 1) Discontinue Latuda ( Patient is most likely experiencing Akathesia) and Vistaril 25 mg po Q 6hrs prn for anxiety. 2) Start Vistaril 50 mg po Q 6hrs prn for anxiety
[2016-05-22] MEDS: hydrOXYzine PAMOATE 50 MG CAPSULE (FP) PO PRN ×2 (16:31→21:43)
[2016-05-22] MEDS: THIAMINE HCL 100 MG TABLET (FP) PO SCH (21:43)
[2016-05-23] MEDS: hydrOXYzine PAMOATE 50 MG CAPSULE (FP) PO PRN ×3 (06:10→16:01)
[2016-05-23] MEDS: PRENATAL VITAMINS W/ FOLIC ACID TABLET (FP) PO SCH (10:17)
[2016-05-23] MEDS: NICOTINE 21 MG/24 HOURS TOPICAL PATCH TD SCH (10:17)
[2016-05-23] MEDS: lamoTRIgine 100 MG TABLET (FP) PO SCH ×2 (10:18→21:54)
[2016-05-23] MEDS: PARoxetine HCL 10 MG TABLET (FP) PO SCH (10:18)
[2016-05-23] MEDS: THIAMINE HCL 100 MG TABLET (FP) PO SCH (21:54)
[2016-05-24] MEDS: hydrOXYzine PAMOATE 50 MG CAPSULE (FP) PO PRN (06:41)
[2016-05-24] MEDS: PRENATAL VITAMINS W/ FOLIC ACID TABLET (FP) PO SCH (10:37)
[2016-05-24] MEDS: NICOTINE 21 MG/24 HOURS TOPICAL PATCH TD SCH (10:37)
[2016-05-24] MEDS: PARoxetine HCL 10 MG TABLET (FP) PO SCH (10:37)
[2016-05-24] MEDS: lamoTRIgine 100 MG TABLET (FP) PO SCH (10:37)
[2016-05-24] MEDS: THIAMINE HCL 100 MG TABLET (FP) PO SCH (21:49)
[2016-05-25] MEDS: NICOTINE 21 MG/24 HOURS TOPICAL PATCH TD SCH (10:26)
[2016-05-25] MEDS: PARoxetine HCL 10 MG TABLET (FP) PO SCH (10:27)
[2016-05-25] MEDS: PRENATAL VITAMINS W/ FOLIC ACID TABLET (FP) PO SCH (10:27)
[2016-05-25] MEDS: lamoTRIgine 100 MG TABLET (FP) PO SCH (10:27)
[2016-05-25] MEDS: hydrOXYzine PAMOATE 50 MG CAPSULE (FP) PO PRN (10:28)
[2016-05-25] MEDS: THIAMINE HCL 100 MG TABLET (FP) PO SCH (21:49)
[2016-05-26] MEDS: PARoxetine HCL 10 MG TABLET (FP) PO SCH (10:08)
[2016-05-26] MEDS: lamoTRIgine 100 MG TABLET (FP) PO SCH (10:08)
[2016-05-26] MEDS: PRENATAL VITAMINS W/ FOLIC ACID TABLET (FP) PO SCH (10:09)
[2016-05-26] MEDS: NICOTINE 21 MG/24 HOURS TOPICAL PATCH TD SCH (10:09)
[2016-05-26] MEDS: THIAMINE HCL 100 MG TABLET (FP) PO SCH (21:53)
[2016-05-27] MEDS: NICOTINE 21 MG/24 HOURS TOPICAL PATCH TD SCH (10:27)
[2016-05-27] MEDS: lamoTRIgine 100 MG TABLET (FP) PO SCH (10:27)
[2016-05-27] MEDS: PARoxetine HCL 10 MG TABLET (FP) PO SCH (10:28)
[2016-05-27] MEDS: PRENATAL VITAMINS W/ FOLIC ACID TABLET (FP) PO SCH (10:28)
[2016-05-27] MEDS: THIAMINE HCL 100 MG TABLET (FP) PO SCH (21:44)
[2016-05-28] MEDS: NICOTINE 21 MG/24 HOURS TOPICAL PATCH TD SCH (10:04)
[2016-05-28] MEDS: PRENATAL VITAMINS W/ FOLIC ACID TABLET (FP) PO SCH (10:05)
[2016-05-28] MEDS: lamoTRIgine 100 MG TABLET (FP) PO SCH (10:05)
[2016-05-28] MEDS: PARoxetine HCL 10 MG TABLET (FP) PO SCH (10:05)
[2016-05-28] MEDS: THIAMINE HCL 100 MG TABLET (FP) PO SCH (21:44)
[2016-05-29] MEDS: lamoTRIgine 100 MG TABLET (FP) PO SCH (10:39)
[2016-05-29] MEDS: PRENATAL VITAMINS W/ FOLIC ACID TABLET (FP) PO SCH (10:39)
[2016-05-29] MEDS: PARoxetine HCL 10 MG TABLET (FP) PO SCH (10:39)
[2016-05-29] MEDS: NICOTINE 21 MG/24 HOURS TOPICAL PATCH TD SCH (10:40)
[2016-05-29] MEDS: THIAMINE HCL 100 MG TABLET (FP) PO SCH (22:12)
[2016-05-30] MEDS: NICOTINE 21 MG/24 HOURS TOPICAL PATCH TD SCH (10:46)
[2016-05-30] MEDS: lamoTRIgine 100 MG TABLET (FP) PO SCH (10:46)
[2016-05-30] MEDS: PARoxetine HCL 10 MG TABLET (FP) PO SCH (10:46)
[2016-05-30] MEDS: PRENATAL VITAMINS W/ FOLIC ACID TABLET (FP) PO SCH (10:46)
[2016-05-30] MEDS: THIAMINE HCL 100 MG TABLET (FP) PO SCH (21:58)
[2016-05-31] MEDS: NICOTINE 21 MG/24 HOURS TOPICAL PATCH TD SCH (10:45)
[2016-05-31] MEDS: PARoxetine HCL 10 MG TABLET (FP) PO SCH (10:46)
[2016-05-31] MEDS: lamoTRIgine 100 MG TABLET (FP) PO SCH (10:46)
[2016-05-31] MEDS: PRENATAL VITAMINS W/ FOLIC ACID TABLET (FP) PO SCH (10:47)
[2016-05-31] MEDS: THIAMINE HCL 100 MG TABLET (FP) PO SCH (22:03)
[2016-06-01] MEDS: PRENATAL VITAMINS W/ FOLIC ACID TABLET (FP) PO SCH (10:47)
[2016-06-01] MEDS: PARoxetine HCL 10 MG TABLET (FP) PO SCH (10:47)
[2016-06-01] MEDS: lamoTRIgine 100 MG TABLET (FP) PO SCH (10:47)
[2016-06-01] MEDS: NICOTINE 21 MG/24 HOURS TOPICAL PATCH TD SCH (10:48)
[2016-06-01] MEDS: THIAMINE HCL 100 MG TABLET (FP) PO SCH (21:43)
[2016-06-02] MEDS: PRENATAL VITAMINS W/ FOLIC ACID TABLET (FP) PO SCH (10:33)
[2016-06-02] MEDS: NICOTINE 21 MG/24 HOURS TOPICAL PATCH TD SCH (10:34)
[2016-06-02] MEDS: PARoxetine HCL 10 MG TABLET (FP) PO SCH (10:34)
[2016-06-02] MEDS: lamoTRIgine 100 MG TABLET (FP) PO SCH (10:34)
[2016-06-02] MEDS: THIAMINE HCL 100 MG TABLET (FP) PO SCH (21:49)
[2016-06-03] MEDS: NICOTINE 21 MG/24 HOURS TOPICAL PATCH TD SCH (10:31)
[2016-06-03] MEDS: PRENATAL VITAMINS W/ FOLIC ACID TABLET (FP) PO SCH (10:31)
[2016-06-03] MEDS: PARoxetine HCL 10 MG TABLET (FP) PO SCH (10:31)
[2016-06-03] MEDS: lamoTRIgine 100 MG TABLET (FP) PO SCH (10:31)
[2016-06-03] MEDS: IBUPROFEN 400 MG TABLET (FP) PO PRN (16:59)
[2016-06-03] MEDS: THIAMINE HCL 100 MG TABLET (FP) PO SCH (22:08)
[2016-06-04] MEDS: IBUPROFEN 400 MG TABLET (FP) PO PRN (06:46)
[2016-06-04] MEDS: lamoTRIgine 100 MG TABLET (FP) PO SCH (10:36)
[2016-06-04] MEDS: PARoxetine HCL 10 MG TABLET (FP) PO SCH (10:37)
[2016-06-04] MEDS: PRENATAL VITAMINS W/ FOLIC ACID TABLET (FP) PO SCH (10:37)
[2016-06-04] MEDS: NICOTINE 21 MG/24 HOURS TOPICAL PATCH TD SCH (10:37)
[2016-06-04] MEDS: THIAMINE HCL 100 MG TABLET (FP) PO SCH (22:01)
[2016-06-05 07:39] VITALS: BP 148/96; PULSE 98; TEMP 97.6
--- NOTE | 2016-06-05 09:18 | PN ---
[id number] F 85-98 17-18 132-148/84-96 Date of Session: 06/05/16 Chief Complaint:: Discharge visit HPI: Patient addressed Opioid and Cocaine dependence comorbid with Bipolar disorder. ROS: Unremarkable. Current Medications: Active Medications Generic Name Dose Route Start Last Admin Trade Name Freq PRN Reason Stop Dose Admin Acetaminophen 650 mg 05/14/16 12:38 Tylenol - PO Q4H PRN FEVER OR PAIN Al Hydroxide/Mg Hydroxide 30 ml 05/14/16 12:38 Mylanta Oral Suspension - PO Q6H PRN DYSPEPSIA Diphenhydramine HCl 50 mg 05/14/16 12:38 Benadryl - PO HSMR1 PRN FOR ITCHING Eucalyptus/Menthol/Phenol/Sorbitol 1 each 05/14/16 12:38 Cepastat Lozenge - MM Q4H PRN SORE THROAT Guaifenesin 10 ml 05/14/16 12:38 Robitussin Dm - PO Q6H PRN COUGH Hydroxyzine Pamoate 50 mg 05/22/16 14:20 05/25/16 10:28 Vistaril - PO 50 mg Q4H PRN Administration ANXIETY Ibuprofen 400 mg 05/14/16 12:38 06/04/16 06:46 Motrin - PO 400 mg Q6H PRN Administration PAIN Lamotrigine 200 mg 05/25/16 10:00 06/04/16 10:36 Lamictal - PO 200 mg DAILY SLICK Administration Loperamide HCl 4 mg 05/14/16 12:38 Imodium - PO Q6H PRN DIARRHEA Magnesium Hydroxide 30 ml 05/14/16 12:38 Milk Of Magnesia - PO DAILY PRN CONSTIPATION Nicotine 21 mg 05/15/16 10:00 06/04/16 10:37 Nicoderm Patch - TD Not Given DAILY SLICK Nicotine Polacrilex 2 mg 05/14/16 12:38 Nicorette Gum - BUC Q2H PRN NICOTINE REPLACEMENT RX Paroxetine HCl 30 mg 05/16/16 10:00 06/04/16 10:37 Paxil - PO 30 mg DAILY SLICK Administration Multivit/Folic Acid/Iron 1 tab 05/15/16 10:00 06/04/16 10:37 Vitamins (Sjr) - PO 1 tab DAILY SLICK Administration Pseudoephedrine/Triprolidine 1 combo 05/14/16 12:38 Actifed - PO TID PRN NASAL CONGESTION Thiamine HCl 100 mg 05/14/16 22:00 06/04/16 22:01 Vitamin B1 - PO Not Given HS SLICK Current Side Effect: No Lab tests ordered: No Lab tests reviewed: Yes Provider note:: Patient completed this program today.She has met her treatment goals and will continue to [facility].Patient continues to find that Paxil 30 mg po daily and Lamictal 200 mg po daily help to reduce her mood instability,sleeping difficulties and anxiety.Scripts for 30 days supply of the above medications provided. Patient is stable for discharge today. Total face to face time:: 30 Mental Status Exam - Mental Status Exam Alert and Oriented to: Time, Place, Person Cognitive Function: Grossly Intact Patient Appearance: Well Groomed Mood: Hopeful, Euthymic Affect: Appropriate, Mood Congruent Patient Behavior: Cooperative Speech Pattern: Clear Voice Loudness: Normal Thought Process: Goal Oriented Thought Disorder: Not Present Hallucinations: Denies Suicidal Ideation: Denies Homicidal Ideation: Denies Insight/Judgement: Fair Sleep: Fair Appetite: Good Muscle strength/Tone: Normal Gait/Station: Normal Psychiatric Treatment Plan - Problem List (3) Nicotine dependence Qualifiers:
[2016-06-05] MEDS: lamoTRIgine 100 MG TABLET (FP) PO SCH (10:04)
[2016-06-05] MEDS: NICOTINE 21 MG/24 HOURS TOPICAL PATCH TD SCH (10:05)
[2016-06-05] MEDS: PRENATAL VITAMINS W/ FOLIC ACID TABLET (FP) PO SCH (10:05)
[2016-06-05] MEDS: PARoxetine HCL 10 MG TABLET (FP) PO SCH (10:05)
== END 2016-06-05 10:10 | disposition home or self-care (01) | DRG 772 ==
LOC: YASAS 10:26 → Y3E 10:28
PROVIDERS: ADMIT Psychiatry & Neurology Psychiatry; ATTEND Psychiatry & Neurology Psychiatry
PROC: HZ42ZZZ Group Counseling for Substance Abuse Treatment, Cognitive-Behavioral (ICD-10-PCS; principal; 2016-05-14)
DX: F11.20 Opioid dependence, uncomplicated (principal); F14.20 Cocaine dependence, uncomplicated; F17.210 Nicotine dependence, cigarettes, uncomplicated; F31.9 Bipolar disorder, unspecified

== ENCOUNTER 2019-04-08 10:14 | Inpatient (IN) | payer OTHER ==
[2019-04-08 11:17] VITALS: BMI 25.3
--- NOTE | 2019-04-08 13:10 | HP ---
COWS - Scale Resting Pulse: 1= [place] 81-100 Sweatin=Flushed/Facial Moisture Restless Observation: 1= Difficult to Sit Still Pupil Size: 0= Normal to Room Light Bone or Joint Aches: 2= Severe Diffuse Aches Runny Nose/ Eye Tearin= Runny Nose/Eyes GI Upset > 30mins: 2= Nausea/Diarrhea Tremor Observation: 1= Tremor [place], Not Seen Yawning Observation: 2= >3x During Session Anxiety or Irritability: 0= None Goose Flesh Skin: 0=Smooth Skin COWS Score: 13 CIWA Score - Admission Criteria OASAS Guidelines: Admission for Medically Managed Detox: Requires at least one of the followin. CIWA greater than 12 2. Seizures within the past 24 hours 3. Delirium tremens within the past 24 hours 4. Hallucinations within the past 24 hours 5. Acute intervention needed for co occurring medical disorder 6. Acute intervention needed for co occurring psychiatric disorder 7. Severe withdrawal that cannot be handled at a lower level of care (continued vomiting, continued diarrhea, abnormal vital signs) requiring intravenous medication and/or fluids 8. Admitting History and Physical - Admission Chief Complaint: detox from heroin History of Present Illness: Ms. Machado is a 49 yo F with a pmhx of depression (on wellbutrin 150mg daily) who presents with a desire to enter detox for heroin use. The pt reports she has been using cocaine since she was in her 20s and in 2014 when she moved to the [place], the only drugs available in her neighborhood were crack and heroin so she tried it. Since then she has been to rehab 5x and her last detox was September 2018. She states that 2mo ago she relapsed on cocaine because she was hanging around friends who had it, and then 3 weeks ago she relapsed on heroin. She states she injects 4-5 bags of heroin per day. She sometimes shares needles with her ex. She states her last overdose was 1 week ago and that her friend used a home narcan kit on her. She is coming in today because she states she has hit her "spiritual bottom" and would like to enter inpatient rehab. She states she last injected heroin earlier this morning before coming here. Her LMP was 03/31/2019 and normal. - Past Medical History ...LMP: 05/12/16 - Smoking History Smoking history: Current every day smoker Have you smoked in the past 12 months: Yes Aproximately how many cigarettes per day: 10 - Alcohol/Substance Use Hx Alcohol Use: Yes (in remission for 1 year) Admission [facility] Allergies/Adverse Reactions: Allergies Allergy/AdvReac Type Severity Reaction Status Date / Time No Known Allergies Allergy Verified 04/08/19 10:59 - Ebola screening Have you traveled outside of the country in the last 21 days: No Have you had contact with anyone from an Ebola affected area: No Do you have a fever: No - Review of Systems Constitutional: Chills, Diaphoresis, Fever, Loss of Appetite EENT: denies: Eye Pain, Ear Pain, Mouth Pain, Throat Pain Respiratory: denies: Cough, Shortness of Breath Cardiac: denies: Chest Pain, Lightheadedness, Palpitations, Syncope GI: reports: Constipated (last BM 3d ago). denies: Abdominal Distended, Diarrhea, Nausea, Vomiting : denies: Burning, Hematuria Musculoskeletal: denies: Back Pain, Joint Pain, Muscle Pain Integumentary: denies: Bruising, Pruritus, Rash Neuro: denies: Headache, Numbness, Tingling, Dizziness Endocrine: denies: Excessive Sweating, Flushing Hematology: denies: Blood Clots, Easy Bleeding, Easy Bruising Psychiatric: reports: Depressed, other (bipolar disorder) Other Systems: Reviewed and Negative Patient History - Patient Medical History Hx Anemia: No Hx Asthma: No Hx Chronic Obstructive Pulmonary Disease (COPD): No Hx Cancer: No Hx Cardiac Disorders: No Hx Congestive Heart Failure: No Hx Hypertension: No Hx Hypercholesterolemia: No Hx Pacemaker: No HX Cerebrovascular Accident: No Hx Seizures: No Hx Dementia: No Hx Diabetes: No Hx Gastrointestinal Disorders: No Hx Liver Disease: No Hx Genitourinary Disorders: No Hx Sexually Transmitted Disorders: No Hx Renal Disease (ESRD): No Hx Thyroid Disease: No Hx Human Immunodeficiency Virus (HIV): No (negative) Hx Hepatitis C: No (negative) Hx Depression: No Hx Suicide Attempt: Yes (2010 with pills) Hx Bipolar Disorder: Yes Hx Schizophrenia: No - Patient Surgical History Past Surgical History: No Hx Neurologic Surgery: No Hx Cataract Extraction: No Hx Cardiac Surgery: No Hx Lung Surgery: No Hx Breast Surgery: No Hx Breast Biopsy: No Hx Abdominal Surgery: No Hx Appendectomy: No Hx Cholecystectomy: No Hx Genitourinary Surgery: No Hx Section: No Anesthesia Reaction: No - PPD History Date: 05/11/16 Results: 0mm - Reproductive History Last Menstrual Period: 05/12/16 - Smoking Cessation Smoking history: Current every day smoker Have you smoked in the past 12 months: Yes Aproximately how many cigarettes per day: 10 Hx Chewing Tobacco Use: No Initiated information on smoking cessation: Yes 'Breaking Loose' booklet given: 04/08/19 - Substances abused Heroin Substance route: Injection Frequency: Daily Amount used: 4 bags Age of first use: 45 Date of last use: 04/08/19 Cocaine Substance route: Inhalation Frequency: 1-3 times last 30 days Amount used: $10 Age of first use: 21 Date of last use: 04/01/19 Admission Physical Exam [facility] - Vital Signs Vital Signs: Vital Signs - 24 hr 04/08/19 10:53 Temperature 98.3 F Pulse Rate 96 H Respiratory 17 Rate Blood Pressure 128/87 - Physical General Appearance: Yes: Within Normal Limits, Appropriately Dressed, Mild Distress, Sweating, Anxious HEENTM: Yes: Within Normal Limits, EOMI, Hearing grossly Normal, Pharynx Normal Respiratory: Yes: Within Normal Limits, Chest Non-Tender, Lungs Clear, Normal Breath Sounds Neck: Yes: Within Normal Limits, No masses,lesions,Nodules, Trachea in good position Cardiology: Yes: Within Normal Limits, Regular Rate, S1, S2, Tachycardia Abdominal: Yes: Within Normal Limits, Normal Bowel Sounds, Non Tender, Flat, Soft Back: Yes: Within Normal Limits, Normal Inspection. No: CVA Tenderness Musculoskeletal: Yes: Within Normal Limits, full range of Motion, Gait Steady, Pelvis Stable Extremities: Yes: Within Normal Limits, Normal Capillary Refill, Normal Inspection, Normal Range of Motion, Non-Tender Neurological: Yes: Within Normal Limits, customer marketing assistant II-XII NML intact, Fully Oriented, Alert, Motor Strength 5/5, Normal Mood/Affect Integumentary: Yes: Within Normal Limits, Normal Color, Warm, Diaphoresis, Moist , Track Jenkins (on neck) - Diagnostic (1) Opioid dependence with withdrawal Current Visit: No Status: Chronic (2) Bipolar disorder Current Visit: No Status: Chronic (3) Cocaine abuse Current Visit: No Status: Acute (4) Nicotine dependence Current Visit: No Status: Chronic Qualifiers: (5) Depression Current Visit: Yes Status: Acute Breathalyzer - Breathalyzer Breathalyzer: 0 Urine Drug Screen - Test Device Lot number: [id number] Expiration date: 10/30/20 - Control Is test valid?: Yes - Results Drug screen NEGATIVE: No Urine drug screen results: FEN-Fentanyl, MOP-Opiates Inpatient Rehab Admission - Rehab Decision to Admit Inpatient rehab admission?: No
[2019-04-08] MEDS ORDERED: METHOCARBAMOL 500 MG TABLET PO PRN (13:29)
[2019-04-08] MEDS ORDERED: ACETAMINOPHEN 325 MG TABLET (FP) PO PRN ×2 (13:29)
[2019-04-08] MEDS ORDERED: cloNIDine HCL 0.1 MG TABLET PO PRN (13:29)
[2019-04-08] MEDS ORDERED: MENTHOL/PHENOL 1 EACH UD MM PRN (13:29)
[2019-04-08] MEDS ORDERED: MAGNESIUM HYDROX 2400MG/30ML ORAL SUSPENSION 30 ML CUP PO PRN (13:29)
[2019-04-08] MEDS ORDERED: BISMUTH SUBSALICYLATE 262 MG/15 ML BTL PO PRN (13:29)
[2019-04-08] MEDS ORDERED: MAGNESIUM CITRATE 300 ML BOTTLE PO PRN (13:29)
[2019-04-08] MEDS ORDERED: IBUPROFEN 400 MG TABLET (FP) PO PRN (13:29)
[2019-04-08] MEDS ORDERED: MAG HYDROX/AL HYDROX/SIMETH 30 ML UNIT-DOSE CUP PO PRN (13:29)
--- NOTE | 2019-04-08 13:47 | PN ---
Teaching Attending Note Name of Resident: Carolyn Calle ATTENDING PHYSICIAN STATEMENT I saw and evaluated the patient. I reviewed the resident's note and discussed the case with the resident. I agree with the resident's findings and plan as documented. SUBJECTIVE:this 49 years old female with heroin dependence iv and cocaine abused ,seeking detox, history of bipolar disorder OBJECTIVE: Vital Signs Temperature 98.3 F 04/08/19 10:53 Pulse Rate 96 H 04/08/19 10:53 Respiratory Rate 17 04/08/19 10:53 Blood Pressure 128/87 04/08/19 10:53 O2 Sat by Pulse Oximetry (%) withdrawal symptom ASSESSMENT AND PLAN: agreed that patient need inpatient detox methadone regimen,medically managed, will go to rehab after detox
[2019-04-08] MEDS ORDERED: METHADONE HCL 10 MG TABLET (FOR DETOX USE ONLY) PO ONE (13:55)
[2019-04-08] MEDS: THIAMINE HCL 100 MG TABLET (FP) PO SCH (22:06)
[2019-04-09] MEDS ORDERED: METHADONE HCL 10 MG TABLET (FOR DETOX USE ONLY) ONE (08:59)
[2019-04-09] MEDS ORDERED: METHADONE HCL 5 MG TABLET (FOR DETOX USE ONLY) ONE (08:59)
--- NOTE | 2019-04-09 09:41 | CONSULT ---
[facility] Psychiatric Consult - Data Date of interview: 04/09/19 Admission source: Self-referred Identifying data: Ms Machado is a 49 years oldc single female, unemployed receiving SSI, domiciled seeking detox treatment for opioid and cocaine Substance Abuse History: Reports history of heroin and cocaine use. Refer to addiction counselor's summary for further information Medical History: Unremarkable. Smokes 10 cigarettes daily Psychiatric History: Patient is known to this facility from previous admission in detox & rehab in May 2016. She is very irritable and uncooperative. Historical narrative lacks consistency in compariso with her previous admission. She acknowledges that she first saw a psychiatrist for mood instablity while visiting a friend in [place] in 1996. She was diagnosed with MDD and prescribed Zoloft. She reports seeing a psychiatrist after returning to the [facility] but has no recollection of lenght of treament. However she reports only one psychiatric admission to [facility] in 2008 when she was diagnosed with Bipolar Disorder. She denies history of multiple psychiatric hospitalizations as reported on her previous admission. Reports that she currently receives outpatient psychiatric treatment at [facility] and she is prescribed Wellbutrin XL 150 mg/day. At present, denies experiencing psychotic, manic symptoms, S/H ideations. However, reports feeling depressed Mental Status Exam - Mental Status Exam Alert and Oriented to: Time, Place, Person Cognitive Function: Fair Patient Appearance: Well Groomed Mood: Depressed, Irritable Affect: Appropriate Speech Pattern: Clear Voice Loudness: Normal Thought Process: Intact, Goal Oriented Thought Disorder: Not Present Hallucinations: Denies Suicidal Ideation: Denies Homicidal Ideation: Denies Sleep: Well Appetite: Good Muscle strength/Tone: Normal Gait/Station: Normal Psychiatric Findings - Problem List ([place] 1, 2,3) (1) Bipolar II disorder Current Visit: Yes Status: Chronic (2) MDD (major depressive disorder), recurrent episode Current Visit: Yes Status: Ruled-out (3) Substance induced mood disorder Current Visit: Yes Status: Acute (4) Opioid dependence with withdrawal Current Visit: No Status: Acute (5) Cocaine abuse Current Visit: No Status: Acute (6) Nicotine dependence Current Visit: No Status: Chronic Qualifiers: - Initial Treatment Plan Initial Treatment Plan: 1) Continue Wellbutrin XL 150 mg po daily. 2) Continue inpatient detoxification
[2019-04-09 09:43] LABS: HEMATOCRIT 41.1 % (32.4-45.2); HEMOGLOBIN 13.6 GM/dL (10.7-15.3); MCH 30.9 pg (25.7-33.7); MEAN CELL VOLUME 93.5 fl (80-96); MEAN PLT VOLUME 10.9 fl (7.5-11.1); PLATELET COUNT 338 K/MM3 (134-434); RBC 4.39 M/mm3 (3.60-5.2); RDW 13.5 % (11.6-15.6); WHITE BLOOD COUNT 9.8 K/mm3 (4.0-10.0)
[2019-04-09] MEDS: PRENATAL VITAMINS W/ FOLIC ACID TABLET (FP) PO SCH (09:56)
[2019-04-09] MEDS ORDERED: METHADONE (DETOX) 20 MG, METHADONE (DETOX) 5 MG PO ONE (10:00)
[2019-04-09 10:18] LABS: ALBUMIN 3.8 g/dl (3.4-5.0); BILIRUBIN,TOTAL 0.4 mg/dL (0.2-1); BLOOD UREA NITROGEN 12.6 mg/dL (7-18); CALCIUM 9.4 mg/dL (8.5-10.1); CREATININE 0.6 mg/dL (0.55-1.3); POTASSIUM 4.3 mmol/L (3.5-5.1); TOT PROT 6.9 g/dl (6.4-8.2)
--- NOTE | 2019-04-09 10:48 | PN ---
BHS COWS - Scale Resting Pulse: 1= [place] 81-100 Sweatin= Chills/Flushing Restless Observation: 1= Difficult to Sit Still Pupil Size: 0= Normal to Room Light Bone or Joint Aches: 2= Severe Diffuse Aches Runny Nose/ Eye Tearin= Nasal Congestion GI Upset > 30mins: 0= None Tremor Observation of Outstretched Hands: 1= Tremor [place], Not Seen Yawning Observation: 1= 1-2x During Session Anxiety or Irritability: 2=Irritable/Anxious Goose Flesh Skin: 0=Smooth Skin COWS Score: 10 BHS Progress Note (SOAP) Subjective: sweats irritable agitation body aches Objective: 04/09/19 10:47 Vital Signs Temperature 98.1 F 04/09/19 09:22 Pulse Rate 105 H 04/09/19 09:22 Respiratory Rate 18 04/09/19 09:22 Blood Pressure 106/67 04/09/19 09:22 O2 Sat by Pulse Oximetry (%) Laboratory Tests 04/08/19 04/08/19 04/09/19 12:49 13:45 07:00 WBC 9.8 RBC 4.39 Hgb 13.6 Hct 41.1 MCV 93.5 MCH 30.9 MCHC 33.0 RDW 13.5 Plt Count 338 MPV 10.9 Sodium Potassium Chloride Carbon Dioxide Anion Gap BUN Creatinine Est GFR (CKD-EPI)AfAm Est GFR (CKD-EPI)NonAf Random Glucose Calcium Total Bilirubin AST ALT Alkaline Phosphatase Total Protein Albumin POC Urine HCG, Qual Negative RPR Titer HIV 1&2 Ag/Ab, 4th Gen Non reactive 04/09/19 04/09/19 07:00 07:00 WBC RBC Hgb Hct MCV MCH MCHC RDW Plt Count MPV Sodium 136 Potassium 4.3 Chloride 100 Carbon Dioxide 28 Anion Gap 7 L BUN 12.6 Creatinine 0.6 Est GFR (CKD-EPI)AfAm 124.05 Est GFR (CKD-EPI)NonAf 107.03 Random Glucose 71 L Calcium 9.4 Total Bilirubin 0.4 AST 11 L ALT 18 Alkaline Phosphatase 85 Total Protein 6.9 Albumin 3.8 POC Urine HCG, Qual RPR Titer Nonreactive HIV 1&2 Ag/Ab, 4th Gen aaox3 ambulating no acute distress Assessment: 04/09/19 10:48 withdrawals Plan: continue detox increase fluids
[2019-04-09] MEDS: THIAMINE HCL 100 MG TABLET (FP) PO SCH (21:30)
[2019-04-09] MEDS: MELATONIN 5 MG TABLETS PO PRN (21:32)
[2019-04-09] MEDS: hydrOXYzine PAMOATE 25 MG CAPSULE (FP) PO PRN (21:32)
[2019-04-10] MEDS ORDERED: METHADONE HCL 10 MG TABLET (FOR DETOX USE ONLY) PO ONE (10:00)
[2019-04-10] MEDS: PRENATAL VITAMINS W/ FOLIC ACID TABLET (FP) PO SCH (10:13)
--- NOTE | 2019-04-10 10:29 | PN ---
BHS COWS - Scale Resting Pulse: 1= [place] 81-100 Sweatin= No chills or Flushing Restless Observation: 1= Difficult to Sit Still Pupil Size: 0= Normal to Room Light Bone or Joint Aches: 0= None Runny Nose/ Eye Tearin= Nasal Congestion GI Upset > 30mins: 0= None Tremor Observation of Outstretched Hands: 1= Tremor [place], Not Seen Yawning Observation: 0= None Anxiety or Irritability: 1=Feels Anxious/Irritable Goose Flesh Skin: 0=Smooth Skin COWS Score: 5 BHS Progress Note (SOAP) Subjective: feeling better restless anxiety Objective: 04/10/19 10:29 Vital Signs Temperature 98.1 F 04/10/19 09:34 Pulse Rate 86 04/10/19 09:34 Respiratory Rate 18 04/10/19 09:34 Blood Pressure 114/74 04/10/19 09:34 O2 Sat by Pulse Oximetry (%) Laboratory Tests 04/08/19 04/08/19 04/09/19 12:49 13:45 07:00 WBC 9.8 RBC 4.39 Hgb 13.6 Hct 41.1 MCV 93.5 MCH 30.9 MCHC 33.0 RDW 13.5 Plt Count 338 MPV 10.9 Sodium Potassium Chloride Carbon Dioxide Anion Gap BUN Creatinine Est GFR (CKD-EPI)AfAm Est GFR (CKD-EPI)NonAf Random Glucose Calcium Total Bilirubin AST ALT Alkaline Phosphatase Total Protein Albumin POC Urine HCG, Qual Negative RPR Titer HIV 1&2 Ag/Ab, 4th Gen Non reactive 04/09/19 04/09/19 07:00 07:00 WBC RBC Hgb Hct MCV MCH MCHC RDW Plt Count MPV Sodium 136 Potassium 4.3 Chloride 100 Carbon Dioxide 28 Anion Gap 7 L BUN 12.6 Creatinine 0.6 Est GFR (CKD-EPI)AfAm 124.05 Est GFR (CKD-EPI)NonAf 107.03 Random Glucose 71 L Calcium 9.4 Total Bilirubin 0.4 AST 11 L ALT 18 Alkaline Phosphatase 85 Total Protein 6.9 Albumin 3.8 POC Urine HCG, Qual RPR Titer Nonreactive HIV 1&2 Ag/Ab, 4th Gen aaox3 ambulating no acute distress Assessment: 04/10/19 10:29 withdrawals Plan: continue detox
[2019-04-10] MEDS: THIAMINE HCL 100 MG TABLET (FP) PO SCH (21:46)
[2019-04-10] MEDS: hydrOXYzine PAMOATE 25 MG CAPSULE (FP) PO PRN (21:46)
[2019-04-10] MEDS: MELATONIN 5 MG TABLETS PO PRN (21:47)
[2019-04-11] MEDS ORDERED: METHADONE HCL 10 MG TABLET (FOR DETOX USE ONLY) ONE (08:51)
[2019-04-11] MEDS ORDERED: METHADONE HCL 5 MG TABLET (FOR DETOX USE ONLY) ONE (08:51)
[2019-04-11] MEDS ORDERED: METHADONE (DETOX) 10 MG, METHADONE (DETOX) 5 MG PO ONE (10:00)
[2019-04-11] MEDS: PRENATAL VITAMINS W/ FOLIC ACID TABLET (FP) PO SCH (10:01)
--- NOTE | 2019-04-11 11:20 | PN ---
BHS COWS - Scale Resting Pulse: 1= [place] 81-100 Sweatin= Chills/Flushing Restless Observation: 0= Sits Still Pupil Size: 0= Normal to Room Light Bone or Joint Aches: 1= Mild Discomfort Runny Nose/ Eye Tearin= None GI Upset > 30mins: 0= None Tremor Observation of Outstretched Hands: 1= Tremor [place], Not Seen Yawning Observation: 0= None Anxiety or Irritability: 1=Feels Anxious/Irritable Goose Flesh Skin: 0=Smooth Skin COWS Score: 5 BHS Progress Note (SOAP) Subjective: anxiety mild sweats Objective: 04/11/19 11:25 Vital Signs Temperature 97.5 F L 04/11/19 10:17 Pulse Rate 85 04/11/19 10:17 Respiratory Rate 18 04/11/19 10:17 Blood Pressure 131/72 04/11/19 10:17 O2 Sat by Pulse Oximetry (%) aaox3 ambulating no acute distress Assessment: 04/11/19 11:25 mild withdrawals Plan: continue detox increase fluids
[2019-04-11] MEDS: hydrOXYzine PAMOATE 25 MG CAPSULE (FP) PO PRN (15:06)
[2019-04-11] MEDS: MELATONIN 5 MG TABLETS PO PRN (21:15)
[2019-04-11] MEDS: THIAMINE HCL 100 MG TABLET (FP) PO SCH (21:15)
[2019-04-12] MEDS: PRENATAL VITAMINS W/ FOLIC ACID TABLET (FP) PO SCH (09:40)
[2019-04-12] MEDS ORDERED: METHADONE HCL 10 MG TABLET (FOR DETOX USE ONLY) PO ONE (10:00)
--- NOTE | 2019-04-12 12:57 | PN ---
BHS COWS - Scale Resting Pulse: 0= [place] 80 or Below Sweatin= Chills/Flushing Restless Observation: 1= Difficult to Sit Still Pupil Size: 0= Normal to Room Light Bone or Joint Aches: 1= Mild Discomfort Runny Nose/ Eye Tearin= None GI Upset > 30mins: 0= None Tremor Observation of Outstretched Hands: 0= None Yawning Observation: 0= None Anxiety or Irritability: 0= None Goose Flesh Skin: 0=Smooth Skin COWS Score: 3 BHS Progress Note (SOAP) Subjective: feeling better Objective: 04/12/19 12:57 Vital Signs Temperature 97.5 F L 04/12/19 09:36 Pulse Rate 76 04/12/19 09:36 Respiratory Rate 16 04/12/19 09:36 Blood Pressure 112/69 04/12/19 09:36 O2 Sat by Pulse Oximetry (%) aaox3 ambulating no acute distress Assessment: 04/12/19 12:58 mild withdrawals Plan: continue detox d/c in am
[2019-04-12] MEDS: hydrOXYzine PAMOATE 25 MG CAPSULE (FP) PO PRN (21:58)
[2019-04-12] MEDS: THIAMINE HCL 100 MG TABLET (FP) PO SCH (21:59)
[2019-04-12] MEDS: MELATONIN 5 MG TABLETS PO PRN (21:59)
[2019-04-13] MEDS ORDERED: METHADONE HCL 5 MG TABLET (FOR DETOX USE ONLY) PO ONE (06:00)
[2019-04-13 09:38] VITALS: BP 112/76; PULSE 88; TEMP 98.7
[2019-04-13] MEDS: PRENATAL VITAMINS W/ FOLIC ACID TABLET (FP) PO SCH (10:20)
--- NOTE | 2019-04-13 13:02 | DS ---
[facility] Detox Discharge Summary Admission Date: 04/08/19 Discharge Date: 04/13/19 - History Present History: Cocaine Dependence, Opioid Dependence Additional Comments: Patient completed detox successfully and accepted admission to [facility]. Patient is in stable condition. - Physical Exam Results Vital Signs: Vital Signs Temperature 98.7 F 04/13/19 09:34 Pulse Rate 88 04/13/19 09:34 Respiratory Rate 16 04/13/19 09:34 Blood Pressure 112/76 04/13/19 09:34 O2 Sat by Pulse Oximetry (%) Pertinent Admission Physical Exam Findings: Withdrawal sxs Laboratory Tests 04/08/19 04/08/19 04/09/19 12:49 13:45 07:00 WBC 9.8 RBC 4.39 Hgb 13.6 Hct 41.1 MCV 93.5 MCH 30.9 MCHC 33.0 RDW 13.5 Plt Count 338 MPV 10.9 Sodium Potassium Chloride Carbon Dioxide Anion Gap BUN Creatinine Est GFR (CKD-EPI)AfAm Est GFR (CKD-EPI)NonAf Random Glucose Calcium Total Bilirubin AST ALT Alkaline Phosphatase Total Protein Albumin POC Urine HCG, Qual Negative RPR Titer HIV 1&2 Ag/Ab, 4th Gen Non reactive 04/09/19 04/09/19 07:00 07:00 WBC RBC Hgb Hct MCV MCH MCHC RDW Plt Count MPV Sodium 136 Potassium 4.3 Chloride 100 Carbon Dioxide 28 Anion Gap 7 L BUN 12.6 Creatinine 0.6 Est GFR (CKD-EPI)AfAm 124.05 Est GFR (CKD-EPI)NonAf 107.03 Random Glucose 71 L Calcium 9.4 Total Bilirubin 0.4 AST 11 L ALT 18 Alkaline Phosphatase 85 Total Protein 6.9 Albumin 3.8 POC Urine HCG, Qual RPR Titer Nonreactive HIV 1&2 Ag/Ab, 4th Gen Labs reviewed - Treatment Hospital Course: Detox Protocol Followed, Detoxed Safely, Responded well, Discharged Condition Good, Rehab Referral Accepted - Medication Discharge Medications: Ambulatory Orders Bupropion HCl [Wellbutrin Xl -] 150 mg PO DAILY 04/08/19 - Diagnosis (1) Opioid dependence with withdrawal Current Visit: Yes Status: Acute (2) Bipolar disorder Current Visit: No Status: Chronic (3) Crack cocaine use Current Visit: Yes Status: Chronic (4) Nicotine dependence Current Visit: Yes Status: Chronic Qualifiers: - AMA Did Patient Leave Against Medical Advice: No (Accepted admission to [facility])
== END 2019-04-13 14:08 | disposition other institution (70) | DRG 773 ==
LOC: YASAS 10:14 → Y6N 13:38
PROVIDERS: ADMIT Allergy & Immunology; ATTEND Allergy & Immunology
PROC: HZ2ZZZZ Detoxification Services for Substance Abuse Treatment (ICD-10-PCS; principal; 2019-04-08)
DX: F11.23 Opioid dependence with withdrawal (principal); F14.20 Cocaine dependence, uncomplicated; F17.210 Nicotine dependence, cigarettes, uncomplicated; F31.81 Bipolar II disorder; F19.24 Other psychoactive substance dependence with psychoactive substance-induced mood disorder; F33.9 Major depressive disorder, recurrent, unspecified; Z91.5 Personal history of self-harm
CPT/HCPCS: 36415; 80053; 81025; 85027; 86593; 87389

== ENCOUNTER 2019-04-13 12:43 | Inpatient (IN) | payer OTHER ==
--- NOTE | 2019-04-13 13:05 | HP ---
[facility] Rehab Assess/Revision - Admission History Admitted to Rehab from: [facility] Date of Admission to Rehab: 04/13/2019 - Findings Detox History & Physical reviewed: Yes Concur with findings: Yes Inpatient Rehab Admission - Rehab Decision to Admit Inpatient rehab admission?: Yes - Initial Determination Are CD services needed?: No Free of communicable disease: Yes Not in need of hospitalization: No - Rehab Admission Criteria Previous failed treatment: Yes Poor recovery environment: Yes Comorbidities: Yes Lacks judgement: Yes Patient is meeting Inpatient Rehab admission criteria:: Yes
[2019-04-13] MEDS ORDERED: MAGNESIUM CITRATE 300 ML BOTTLE PO PRN (13:06)
[2019-04-13] MEDS ORDERED: LOPERAMIDE HCL 2 MG CAPSULE PO PRN (13:06)
[2019-04-13] MEDS ORDERED: NICOTINE POLACRILEX 2 MG GUM BUC PRN (13:06)
[2019-04-13] MEDS ORDERED: MAGNESIUM HYDROX 2400MG/30ML ORAL SUSPENSION 30 ML CUP PO PRN (13:06)
[2019-04-13] MEDS ORDERED: guaiFENesin 200 MG/10 ML 10 ML UNIT-DOSE CUPS PO PRN (13:06)
[2019-04-13] MEDS ORDERED: P-EPHED 60MG/TRIPROLIDI 2.5MG TABLET PO PRN (13:06)
[2019-04-13] MEDS ORDERED: MENTHOL/PHENOL 1 EACH UD MM PRN (13:06)
[2019-04-13] MEDS ORDERED: MAG HYDROX/AL HYDROX/SIMETH 30 ML UNIT-DOSE CUP PO PRN (13:06)
[2019-04-13] MEDS: hydrOXYzine PAMOATE 50 MG CAPSULE (FP) PO PRN (21:04)
[2019-04-13] MEDS: MELATONIN 5 MG TABLETS PO PRN (21:04)
[2019-04-13] MEDS: THIAMINE HCL 100 MG TABLET (FP) PO SCH (21:04)
[2019-04-14] MEDS: PRENATAL VITAMINS W/ FOLIC ACID TABLET (FP) PO SCH (09:43)
--- NOTE | 2019-04-14 11:44 | PN ---
S Progress Note Note: Pt is a 49 y/o female with a hx of LYNN admitted to rehab from [address] on . Pt reports she has a PCP, Dr. Shanthi Ramey at [place], [place]. Vital Signs - 24 hr 04/13/19 04/14/19 04/14/19 13:22 00:30 07:15 Temperature 98 F 97.7 F Pulse Rate 82 71 Respiratory 18 18 18 Rate Blood Pressure 104/67 93/60 Alert o x 3 nad oob ambulating with steady gait A/P s/p detox new rehab pt maintain safety cont rehab
[2019-04-14] MEDS: THIAMINE HCL 100 MG TABLET (FP) PO SCH (22:02)
[2019-04-15] MEDS: PRENATAL VITAMINS W/ FOLIC ACID TABLET (FP) PO SCH (09:48)
[2019-04-15] MEDS: hydrOXYzine PAMOATE 50 MG CAPSULE (FP) PO PRN (21:33)
[2019-04-15] MEDS: THIAMINE HCL 100 MG TABLET (FP) PO SCH (21:33)
[2019-04-15] MEDS: MELATONIN 5 MG TABLETS PO PRN (21:33)
[2019-04-16] MEDS: PRENATAL VITAMINS W/ FOLIC ACID TABLET (FP) PO SCH (09:54)
[2019-04-16] MEDS: THIAMINE HCL 100 MG TABLET (FP) PO SCH (21:22)
[2019-04-16] MEDS: hydrOXYzine PAMOATE 50 MG CAPSULE (FP) PO PRN (21:22)
[2019-04-16] MEDS: MELATONIN 5 MG TABLETS PO PRN (21:22)
[2019-04-17] MEDS: PRENATAL VITAMINS W/ FOLIC ACID TABLET (FP) PO SCH (09:46)
[2019-04-17] MEDS: THIAMINE HCL 100 MG TABLET (FP) PO SCH (22:27)
[2019-04-18] MEDS: PRENATAL VITAMINS W/ FOLIC ACID TABLET (FP) PO SCH (10:02)
--- NOTE | 2019-04-18 11:40 | CONSULT ---
[facility] Psychiatric Consult - Data Date of interview: 04/18/19 Admission source: 6N Identifying data: Ms Machado is a 49 years old single female, unemployed receiving SSI, domiciled seeking detox treatment for opioid and cocaine Substance Abuse History: eports history of heroin and cocaine use. Refer to addiction counselor's summary for further information Medical History: Unremarkable. Smokes 10 cigarettes daily Psychiatric History: Patient was recently seen by journalists and other writers on 04/09/19 while amitted to detox. She is more pleasant and cooperative compared to when seen previously. She acknowledges that she first saw a psychiatrist for mood instablity while visiting a friend in [place] in 1996. She was diagnosed with MDD and prescribed Zoloft. She reports seeing a psychiatrist after returning to the [facility] but has no recollection of lenght of treament. However she reports only one psychiatric admission to [facility] in 2008 when she was diagnosed with Bipolar Disorder. She denies history of multiple psychiatric hospitalizations as reported on her previous admission. Reports that she currently receives outpatient psychiatric treatment at [facility] and she is prescribed Wellbutrin XL 150 mg/day. When see by journalists and other writers on 04/09/19, she was continued on Wellbutrin XL 150 mg/day. Now reports that she is still depressed despite being back on Wellbutrin for 3 weeks. At present, denies experiencing psychotic, manic symptoms, S/H ideations. However, continues to report feeling depressed. Requests that Wellbutrin XL dosage be increased to 300 mg/day Mental Status Exam - Mental Status Exam Alert and Oriented to: Time, Place, Person Cognitive Function: Fair Patient Appearance: Well Groomed Mood: Depressed Affect: Appropriate Patient Behavior: Cooperative Speech Pattern: Clear Voice Loudness: Normal Thought Process: Intact, Goal Oriented Thought Disorder: Not Present Hallucinations: Denies Suicidal Ideation: Denies Homicidal Ideation: Denies Insight/Judgement: Fair Sleep: Well Appetite: Good Muscle strength/Tone: Normal Gait/Station: Normal Psychiatric Findings - Problem List ([place] 1, 2,3) (1) Bipolar II disorder Current Visit: No Status: Chronic (2) MDD (major depressive disorder), recurrent episode Current Visit: No Status: Ruled-out (3) Substance induced mood disorder Current Visit: No Status: Acute (4) Opioid dependence Current Visit: Yes Status: Acute (5) Cocaine abuse Current Visit: No Status: Acute (6) Nicotine dependence Current Visit: No Status: Chronic Qualifiers: - Initial Treatment Plan Initial Treatment Plan: 1) Discontinue Wellbutrin XL 150 mg po daily. 2) Start Wellbutrin XL 300 mg po daily. 3) Continue inpatient rehabilitation
[2019-04-18] MEDS: THIAMINE HCL 100 MG TABLET (FP) PO SCH (22:02)
[2019-04-19] MEDS: PRENATAL VITAMINS W/ FOLIC ACID TABLET (FP) PO SCH (10:07)
[2019-04-19] MEDS ORDERED: COLLOIDAL OATMEAL 1 BAR EACH TP PRN (12:03)
[2019-04-19] MEDS ORDERED: MINERAL OIL/PETROLAT/WATER TOPICAL CREAM 454 GM JAR TP PRN (12:04)
[2019-04-19] MEDS: THIAMINE HCL 100 MG TABLET (FP) PO SCH (22:00)
[2019-04-20] MEDS: PRENATAL VITAMINS W/ FOLIC ACID TABLET (FP) PO SCH (09:43)
[2019-04-20] MEDS: hydrOXYzine PAMOATE 50 MG CAPSULE (FP) PO PRN ×3 (12:17→21:30)
[2019-04-20] MEDS: THIAMINE HCL 100 MG TABLET (FP) PO SCH (21:28)
[2019-04-20] MEDS: MELATONIN 5 MG TABLETS PO PRN (21:29)
[2019-04-21] MEDS: IBUPROFEN 400 MG TABLET (FP) PO PRN ×3 (05:55→21:09)
[2019-04-21] MEDS: ACETAMINOPHEN 325 MG TABLET (FP) PO PRN ×2 (06:36→12:38)
[2019-04-21] MEDS: PRENATAL VITAMINS W/ FOLIC ACID TABLET (FP) PO SCH (09:51)
[2019-04-21] MEDS: hydrOXYzine PAMOATE 50 MG CAPSULE (FP) PO PRN ×2 (10:53→21:10)
[2019-04-21] MEDS: THIAMINE HCL 100 MG TABLET (FP) PO SCH (21:09)
[2019-04-21] MEDS: MELATONIN 5 MG TABLETS PO PRN (21:10)
[2019-04-22] MEDS: IBUPROFEN 400 MG TABLET (FP) PO PRN (06:25)
[2019-04-22] MEDS: hydrOXYzine PAMOATE 50 MG CAPSULE (FP) PO PRN ×2 (08:56→17:41)
[2019-04-22] MEDS: PRENATAL VITAMINS W/ FOLIC ACID TABLET (FP) PO SCH (09:09)
[2019-04-22] MEDS: ACETAMINOPHEN 325 MG TABLET (FP) PO PRN (17:40)
[2019-04-22] MEDS: THIAMINE HCL 100 MG TABLET (FP) PO SCH (23:36)
[2019-04-23] MEDS: PRENATAL VITAMINS W/ FOLIC ACID TABLET (FP) PO SCH (09:57)
[2019-04-23] MEDS: hydrOXYzine PAMOATE 50 MG CAPSULE (FP) PO PRN ×3 (09:57→21:22)
[2019-04-23] MEDS: IBUPROFEN 400 MG TABLET (FP) PO PRN (11:04)
[2019-04-23] MEDS: MELATONIN 5 MG TABLETS PO PRN (21:22)
[2019-04-23] MEDS: THIAMINE HCL 100 MG TABLET (FP) PO SCH (21:22)
[2019-04-24] MEDS: PRENATAL VITAMINS W/ FOLIC ACID TABLET (FP) PO SCH (09:45)
[2019-04-24] MEDS: hydrOXYzine PAMOATE 50 MG CAPSULE (FP) PO PRN ×2 (09:46→21:49)
[2019-04-24] MEDS: MELATONIN 5 MG TABLETS PO PRN (21:48)
[2019-04-24] MEDS: THIAMINE HCL 100 MG TABLET (FP) PO SCH (21:48)
[2019-04-25] MEDS: PRENATAL VITAMINS W/ FOLIC ACID TABLET (FP) PO SCH (09:49)
[2019-04-25] MEDS: hydrOXYzine PAMOATE 50 MG CAPSULE (FP) PO PRN ×2 (09:50→21:25)
[2019-04-25] MEDS: MELATONIN 5 MG TABLETS PO PRN (21:25)
[2019-04-25] MEDS: THIAMINE HCL 100 MG TABLET (FP) PO SCH (21:25)
[2019-04-26] MEDS: hydrOXYzine PAMOATE 50 MG CAPSULE (FP) PO PRN ×3 (07:36→18:59)
[2019-04-26] MEDS: PRENATAL VITAMINS W/ FOLIC ACID TABLET (FP) PO SCH (09:51)
[2019-04-26] MEDS: THIAMINE HCL 100 MG TABLET (FP) PO SCH (21:59)
[2019-04-27] MEDS: PRENATAL VITAMINS W/ FOLIC ACID TABLET (FP) PO SCH (09:26)
[2019-04-27] MEDS: hydrOXYzine PAMOATE 50 MG CAPSULE (FP) PO PRN (09:27)
[2019-04-27] MEDS: THIAMINE HCL 100 MG TABLET (FP) PO SCH (21:23)
[2019-04-27] MEDS: MELATONIN 5 MG TABLETS PO PRN (21:23)
[2019-04-28] MEDS: PRENATAL VITAMINS W/ FOLIC ACID TABLET (FP) PO SCH (09:46)
[2019-04-28] MEDS: hydrOXYzine PAMOATE 50 MG CAPSULE (FP) PO PRN (21:23)
[2019-04-28] MEDS: THIAMINE HCL 100 MG TABLET (FP) PO SCH (21:23)
[2019-04-28] MEDS: MELATONIN 5 MG TABLETS PO PRN (21:23)
[2019-04-29] MEDS: PRENATAL VITAMINS W/ FOLIC ACID TABLET (FP) PO SCH (09:48)
[2019-04-29] MEDS: hydrOXYzine PAMOATE 50 MG CAPSULE (FP) PO PRN ×2 (09:48→18:13)
[2019-04-29] MEDS: THIAMINE HCL 100 MG TABLET (FP) PO SCH (21:11)
[2019-04-30] MEDS: hydrOXYzine PAMOATE 50 MG CAPSULE (FP) PO PRN (09:45)
[2019-04-30] MEDS: PRENATAL VITAMINS W/ FOLIC ACID TABLET (FP) PO SCH (09:45)
[2019-04-30] MEDS: THIAMINE HCL 100 MG TABLET (FP) PO SCH (22:23)
[2019-05-01] MEDS: hydrOXYzine PAMOATE 50 MG CAPSULE (FP) PO PRN (09:47)
[2019-05-01] MEDS: PRENATAL VITAMINS W/ FOLIC ACID TABLET (FP) PO SCH (09:47)
[2019-05-01] MEDS: THIAMINE HCL 100 MG TABLET (FP) PO SCH (23:21)
[2019-05-02] MEDS: PRENATAL VITAMINS W/ FOLIC ACID TABLET (FP) PO SCH (09:59)
[2019-05-02] MEDS: hydrOXYzine PAMOATE 50 MG CAPSULE (FP) PO PRN ×2 (10:00→21:56)
[2019-05-02] MEDS: THIAMINE HCL 100 MG TABLET (FP) PO SCH (21:55)
[2019-05-02] MEDS: MELATONIN 5 MG TABLETS PO PRN (21:56)
[2019-05-03] MEDS: hydrOXYzine PAMOATE 50 MG CAPSULE (FP) PO PRN (10:01)
[2019-05-03] MEDS: PRENATAL VITAMINS W/ FOLIC ACID TABLET (FP) PO SCH (10:01)
[2019-05-03] MEDS ORDERED: PT OWN MED DRAWER 7, Y5N ONE (21:48)
[2019-05-03] MEDS: THIAMINE HCL 100 MG TABLET (FP) PO SCH (22:08)
[2019-05-04] MEDS: hydrOXYzine PAMOATE 50 MG CAPSULE (FP) PO PRN (10:05)
[2019-05-04] MEDS: PRENATAL VITAMINS W/ FOLIC ACID TABLET (FP) PO SCH (10:05)
--- NOTE | 2019-05-04 13:02 | PN ---
S Progress Note Note: Psychiatric nurse practitioner note: Patient scheduled for discharge tomorrow. A 30 day prescription of Wellbutrin 300mg XL was electronically sent to [facility] @ [address] [place] [id number].
[2019-05-04] MEDS: THIAMINE HCL 100 MG TABLET (FP) PO SCH (21:24)
[2019-05-05 06:48] VITALS: BP 95/64; PULSE 91; TEMP 97.2
--- NOTE | 2019-05-05 08:29 | DS ---
[facility] Rehab Discharge Summary - [facility] Rehab Discharge Summary Admission Date: 04/13/19 Discharge Date: 05/05/19 - History Present History: Cocaine dependence, Opioid dependence Pertinent Past History: Ms. Machado is a 49 yo F with a pmhx of depression (on wellbutrin 150mg daily). The pt reports she has been using cocaine since she was in her 20s and in 2014 when she moved to the [place], the only drugs available in her neighborhood were crack and heroin so she tried it. Since then she has been to rehab 5x and her last detox was September 2018. She states that 2mo ago she relapsed on cocaine because she was hanging around friends who had it, and then 3 weeks ago she relapsed on heroin. She states she injects 4-5 bags of heroin per day. She sometimes shares needles with her ex. She states her last overdose was 1 week ago and that her friend used a home narcan kit on her. She states she has hit her "spiritual bottom" and would like to enter inpatient rehab. She states she last injected heroin earlier this morning before coming here. Her LMP was 2018 and normal. - Discharge Physical Exam Vital Signs: Vital Signs Temperature 97.2 F L 05/05/19 06:47 Pulse Rate 91 H 05/05/19 06:47 Respiratory Rate 16 05/05/19 06:47 Blood Pressure 95/64 05/05/19 06:47 O2 Sat by Pulse Oximetry (%) Pertinent Admission Physical Exam Findings: - Physical General Appearance: no apparent distress HEENTM: EOMI, PERRLA, normocephalic Respiratory:Lungs Clear, Neck: supple,Trachea in good position Cardiology: S1, S2, Abdominal: +Bowel Sounds, Musculoskeletal: full range of Motion, Gait Steady, Neurological: signals intelligence superintendent II-XII intact, - Treatment Discharge Condition: Outpatient referral accepted (Patient will go to [place] outpatient. Medically stable for discharge.) Hospital Course: Patient attended groups, had 1:1 with her counselor and was seen by the psychiatric service. She had no significant medical problems while in rehab. - Medication Discharge Medications: Ambulatory Orders Bupropion HCl [Wellbutrin Xl -] 150 mg PO DAILY 04/08/19 Bupropion HCl [Wellbutrin Xl -] 300 mg PO DAILY #30 tab.sr.24h 05/04/19 - Medication-Assisted Treatment (MAT) Medication-Assisted Treatment (MAT): No - Discharge Instructions Diet, activity, other medical instructions: Diet: as tolerated Activity: as tolerated Other medical instructions: Please follow up with aftercare referral. - Diagnosis (1) Opioid dependence Current Visit: Yes Status: Chronic (2) Cocaine abuse Current Visit: No Status: Chronic - Follow-up Referral Minutes to complete discharge: 20 - AMA Did Patient Leave Against Medical Advice: No Additional Comments: Patient did not have any prescriptions for chronic medical conditions that needed to be transmitted to a pharmacy.
[2019-05-05] MEDS: PRENATAL VITAMINS W/ FOLIC ACID TABLET (FP) PO SCH (09:03)
[2019-05-05] MEDS ORDERED: PT OWN MED DRAWER 7, Y5N ONE (09:04)
== END 2019-05-05 09:09 | disposition home or self-care (01) | DRG 772 ==
LOC: YASAS 12:43 → Y3E 12:44
PROVIDERS: ADMIT Neuromusculoskeletal Medicine & OMM; ATTEND Neuromusculoskeletal Medicine & OMM
PROC: HZ42ZZZ Group Counseling for Substance Abuse Treatment, Cognitive-Behavioral (ICD-10-PCS; principal; 2019-04-13)
DX: F11.20 Opioid dependence, uncomplicated (principal); F14.20 Cocaine dependence, uncomplicated; F17.210 Nicotine dependence, cigarettes, uncomplicated; F31.81 Bipolar II disorder; F19.24 Other psychoactive substance dependence with psychoactive substance-induced mood disorder

== ENCOUNTER 2019-10-13 10:29 | Inpatient (IN) | payer OTHER ==
--- NOTE | 2019-10-13 10:54 | BHS.RME ---
Substance Use & Tx History - Substance Use History Heroin Substance amount: 2-3 bags Marijuana/Hashish Substance amount: 1blunt Frequency of use: Once a month Substance route: Smoking Date of Last Use: 10/06/19 Nicotine Substance amount: 1/2 pack Frequency of use: Daily Substance route: Smoking Date of Last Use: 10/13/19 Physical/Psych/Mental Status - Behavior General Behavior: Increased activity (restlessness, agitation) Eye Contact: Normal - Cooperativeness Cooperativeness: Cooperative - Thinking Thought Processes: Tight, Logical, Goal Directed - Physical Health Problems Is patient presently having any pain?: No Does patient presently have any injuries (include location): No Does patient currently have a fever: No Is patient : No COWS - Scale Resting Pulse: 2= [place] 101-120 Sweatin= No chills or [place] Restless Observation: 1= Difficult to Sit Still Pupil Size: 0= Normal to Room Light Bone or Joint Aches: 0= None Runny Nose/ Eye Tearin= None GI Upset > 30mins: 0= None Tremor Observation: 1= Tremor [place], Not Seen Yawning Observation: 1= 1-2x During Session Anxiety or Irritability: 1=Feels Anxious/Irritable Goose Flesh Skin: 0=Smooth Skin (just used this morning.) COWS Score: 6
--- NOTE | 2019-10-13 11:35 | HP ---
COWS - Scale Resting Pulse: 2= [place] 101-120 Sweatin= No chills or [place] Restless Observation: 1= Difficult to Sit Still Pupil Size: 0= Normal to Room Light Bone or Joint Aches: 0= None Runny Nose/ Eye Tearin= None GI Upset > 30mins: 0= None Tremor Observation: 1= Tremor [place], Not Seen Yawning Observation: 1= 1-2x During Session Anxiety or Irritability: 1=Feels Anxious/Irritable Goose Flesh Skin: 0=Smooth Skin (just used this morning.) COWS Score: 6 CIWA Score - Admission Criteria OASAS Guidelines: Admission for Medically Managed Detox: Requires at least one of the followin. CIWA greater than 12 2. Seizures within the past 24 hours 3. Delirium tremens within the past 24 hours 4. Hallucinations within the past 24 hours 5. Acute intervention needed for co occurring medical disorder 6. Acute intervention needed for co occurring psychiatric disorder 7. Severe withdrawal that cannot be handled at a lower level of care (continued vomiting, continued diarrhea, abnormal vital signs) requiring intravenous medication and/or fluids 8. Admitting History and Physical - Admission Chief Complaint: " I want to get clean and I can't do it myself." History of Present Illness: 49 year old female with history of opioid dependence just recently relapsed after 1 year of abstinence. She had completed detox 04/2019 and whent to rehab but when COVID occurred she relapsed again in 2019. Heroin: 2-3 bags IV and SN, started at age 45 and last sed today at 4AM. She has overdose 3 times, last one 1 year ago, she does carry narcan. Cocaine: sporadic use IN, last used 2 days ago. HTC: Sporadic use, last used 2 days ago. Nicotine: 1/2 pack SM started at age 14 and last used 10/13/19 PMH: None Psurg: None Psych: Depression, Bipolar Lives in the [place] [facility]. No legal issues pending. She is at high risk for relapse and overdose as she continues to use. Urine Tox: FEN, THC, TARAN, MOP COWS: 6 due to use this morning. History Source: Patient Limitations to Obtaining History: No Limitations - Past Medical History ...LMP: 04/01/19 Psych: Yes: Bipolar, Depression - Past Surgical History Past Surgical History: Yes: None - Smoking History Smoking history: Current every day smoker Have you smoked in the past 12 months: Yes Aproximately how many cigarettes per day: 10 - Alcohol/Substance Use Hx Alcohol Use: Yes (in remission for 1 year) History of Substance Use: reports: Cocaine, Heroin, Marijuana Date of Last Use: 10/11/19 - Social History Usual Living Arrangement: Yes: Alone Do you think of yourself as: Straight/Heterosexual ADL: Independent 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 Loss EENT: reports: No Symptoms Reported Respiratory: reports: No Symptoms reported Cardiac: reports: No Symptoms Reported GI: reports: No Symptoms Reported : reports: No Symptoms Reported Musculoskeletal: reports: No Symptoms Reported Integumentary: reports: No Symptoms Reported Neuro: reports: No Symptoms reported Endocrine: reports: No Symptoms Reported Hematology: reports: No Symptoms Reported Psychiatric: reports: Judgement Intact, Mood/Affect Appropiate, Orientated x3, Agitated, Anxious Other Systems: Reviewed and Negative Patient History - Patient Medical History Hx Anemia: No Hx Asthma: No Hx Chronic Obstructive Pulmonary Disease (COPD): No Hx Cancer: No Hx Cardiac Disorders: No Hx Congestive Heart Failure: No Hx Hypertension: No Hx Hypercholesterolemia: No Hx Pacemaker: No HX Cerebrovascular Accident: No Hx Seizures: No Hx Dementia: No Hx Diabetes: No Hx Gastrointestinal Disorders: No Hx Liver Disease: No Hx Genitourinary Disorders: No Hx Sexually Transmitted Disorders: Yes (Herpes) Hx Renal Disease (ESRD): No Hx Thyroid Disease: No Hx Human Immunodeficiency Virus (HIV): No (negative) Hx Hepatitis C: No (negative) Hx Depression: Yes Hx Suicide Attempt: No Hx Bipolar Disorder: Yes Hx Schizophrenia: No - Patient Surgical History Past Surgical History: No Hx Neurologic Surgery: No Hx Cataract Extraction: No Hx Cardiac Surgery: No Hx Lung Surgery: No Hx Breast Surgery: No Hx Breast Biopsy: No Hx Abdominal Surgery: No Hx Appendectomy: No Hx Cholecystectomy: No Hx Genitourinary Surgery: No Hx Section: No Anesthesia Reaction: No - PPD History Previous Implant?: Yes Documented Results: Negative w/proof Implanted On Prior [facility] Admission?: Yes Date: 04/10/19 Results: 0mm PPD to be Administered?: No - Reproductive History Last Menstrual Period: 04/01/19 - Smoking Cessation Smoking history: Current every day smoker Have you smoked in the past 12 months: Yes Aproximately how many cigarettes per day: 10 Hx Chewing Tobacco Use: No Initiated information on smoking cessation: Yes 'Breaking Loose' booklet given: 10/20/19 - Substances abused Heroin Substance route: Injection Amount used: 2-3 bags Age of first use: 45 Date of last use: 10/13/19 Cocaine Substance route: Inhalation Frequency: 1-3 times last 30 days Amount used: 1 line Age of first use: 45 Date of last use: 10/11/19 Marijuana/Hashish Other (specify): sporadic use Substance route: Smoking Frequency: 1-3 times last 30 days Amount used: 1 blunt Age of first use: 18 Date of last use: 10/11/19 Admission Physical Exam BHS - Physical General Appearance: Yes: Thin, Anxious HEENTM: Yes: EOMI, Hearing grossly Normal, Normal ENT Inspection, Normocephalic, Normal Voice, ALEXEI, Pharynx Normal, Tm's normal Respiratory: Yes: Chest Non-Tender, Lungs Clear, Normal Breath Sounds, No Respiratory Distress, No Accessory Muscle Use Neck: Yes: No masses,lesions,Nodules, Supple, Trachea in good position Breast: Yes: Breast Exam Deferred Cardiology: Yes: Regular Rhythm, Regular Rate, S1, S2 Abdominal: Yes: Normal Bowel Sounds, Non Tender, Flat, Soft Genitourinary: Yes: Within Normal Limits Back: Yes: Normal Inspection Musculoskeletal: Yes: full range of Motion, Gait Steady, Pelvis Stable Extremities: Yes: Normal Capillary Refill, Normal Inspection, Normal Range of Motion, Non-Tender Neurological: Yes: head cashier II-XII NML intact, Fully Oriented, Alert, Motor Strength 5/5, Normal Mood/Affect, Normal Response Integumentary: Yes: Normal Color, Dry, Warm Lymphatic: Yes: Within Normal Limits - Diagnostic (1) Cocaine abuse Current Visit: Yes Status: Chronic (2) Cannabis use disorder, mild, abuse Current Visit: Yes Status: Acute (3) Depression Current Visit: Yes Status: Acute (4) Opioid dependence with withdrawal Current Visit: Yes Status: Acute (5) Substance induced mood disorder Current Visit: Yes Status: Acute (6) Bipolar II disorder Current Visit: No Status: Chronic (7) Nicotine dependence Current Visit: Yes Status: Chronic Qualifiers: Cleared for Admission [facility] - Detox or Rehab [facility] Level of Care: Medically Managed Detox Regimen/Protocol: Methadone Claeared for Rehab Admission: No Screened but not Admitted - Documentation of Visit Screened but not Admitted: No Breathalyzer - Breathalyzer Breathalyzer: 0 Urine Drug Screen - Test Device Lot number: [id number] Expiration date: 11/30/20 - Control Is test valid?: Yes - Results Drug screen NEGATIVE: No Urine drug screen results: THC-Marijuana, TARAN-Cocaine, FEN-Fentanyl, MOP-Opiates Inpatient Rehab Admission - Rehab Decision to Admit Inpatient rehab admission?: No
[2019-10-13] MEDS ORDERED: MAGNESIUM CITRATE 300 ML BOTTLE PO PRN (11:40)
[2019-10-13] MEDS ORDERED: MAGNESIUM HYDROX 2400MG/30ML ORAL SUSPENSION 30 ML CUP PO PRN (11:40)
[2019-10-13] MEDS ORDERED: NICOTINE POLACRILEX 2 MG GUM BUC PRN (11:40)
[2019-10-13] MEDS ORDERED: cloNIDine HCL 0.1 MG TABLET PO PRN (11:40)
[2019-10-13] MEDS ORDERED: METHADONE HCL 10 MG TABLET (FOR DETOX USE ONLY) PO ONE (11:40)
[2019-10-13] MEDS ORDERED: BISMUTH SUBSALICYLATE 262 MG/15 ML BTL PO PRN (11:40)
[2019-10-13] MEDS ORDERED: ONDANSETRON *ODT* 4 MG TABLET SL ONE (11:40)
[2019-10-13] MEDS ORDERED: ACETAMINOPHEN 325 MG TABLET (FP) PO PRN ×2 (11:40)
[2019-10-13] MEDS ORDERED: METHOCARBAMOL 500 MG TABLET PO PRN (11:40)
[2019-10-13] MEDS ORDERED: MAG HYDROX/AL HYDROX/SIMETH 30 ML UNIT-DOSE CUP PO PRN (11:40)
[2019-10-13] MEDS ORDERED: MENTHOL/PHENOL 1 EACH UD MM PRN (11:40)
[2019-10-13] MEDS ORDERED: IBUPROFEN 400 MG TABLET (FP) PO PRN (11:40)
[2019-10-13 12:02] VITALS: BMI 22.6
--- NOTE | 2019-10-13 12:25 | CONSULT ---
[facility] Psychiatric Consult - Data Date of interview: 10/13/19 Admission source: Self-referred Identifying data: Ms Machado is a 49 years old single female, unemployed receiving SSI, domiciled seeking detox treatment for opioid, cocaine and cannabis Substance Abuse History: Reports history of heroin, cocaine and marijuana use. Refer to addiction counselor's summary for further information Medical History: Unremarkable. Smokes 10 cigarettes daily Psychiatric History: Patient is known for four previous admissions to this facility. She acknowledges that she first saw a psychiatrist for mood instablity while visiting a friend in [place] in 1996. She was diagnosed with MDD and prescribed Zoloft. She reports seeing a psychiatrist after returning to the [facility] but has no recollection of lenght of treament. However she reports only one psychiatric admission to [facility] in 2008 when her diagnosis was revised to Bipolar Disorder. Reports that she still receives outpatient p sychiatric treatment at [facility] and she is prescribed Wellbutrin XL 300 mg/day. Reports that she stopped taking medication in July 2019 and restarted back a month ago. 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 She has been on Paxil 20 mg/day and Lamictal 100 mg/day in the past. Denies previous suicidal attempt. At present, denies expriencing psychotic, manic symptoms, S/H ideations. However, reorts sleeping poorly Mental Status Exam - Mental Status Exam Alert and Oriented to: Time, Place, Person Cognitive Function: Fair Patient Appearance: Well Groomed Mood: Hopeful, Euthymic Affect: Appropriate Patient Behavior: Cooperative Speech Pattern: Clear Voice Loudness: Normal Thought Process: Intact, Goal Oriented Thought Disorder: Not Present Hallucinations: Denies Suicidal Ideation: Denies Homicidal Ideation: Denies Insight/Judgement: Poor Sleep: Poorly Appetite: Good Muscle strength/Tone: Normal Gait/Station: Normal Psychiatric Findings - Problem List ([place] 1, 2,3) (1) Bipolar II disorder Current Visit: No Status: Chronic (2) Substance-induced sleep disorder Current Visit: Yes Status: Acute (3) Opioid dependence with withdrawal Current Visit: Yes Status: Acute (4) Cocaine abuse Current Visit: Yes Status: Acute (5) Cannabis abuse Current Visit: Yes Status: Acute (6) Nicotine dependence Current Visit: Yes Status: Chronic Qualifiers: - Initial Treatment Plan Initial Treatment Plan: 1) Continue Wellbutrin XL 300 mg po daily. 2) Continue inpatient detoxification
[2019-10-13] MEDS: hydrOXYzine PAMOATE 25 MG CAPSULE (FP) PO SCH ×3 (13:24→22:27)
[2019-10-13] MEDS: NICOTINE 7 MG/24 HOURS TOPICAL PATCH TD SCH (13:24)
[2019-10-13] MEDS: PRENATAL VITAMINS W/ FOLIC ACID TABLET (FP) PO SCH (13:26)
[2019-10-13 17:23] LABS: HEMATOCRIT 38.1 % (32.4-45.2); HEMOGLOBIN 12.6 GM/dL (10.7-15.3); MCH 30.5 pg (25.7-33.7); MCHC 33.1 g/dl (32.0-36.0); MEAN PLT VOLUME 10.4 fl (7.5-11.1); PLATELET COUNT 307 K/MM3 (134-434); RBC 4.14 M/mm3 (3.60-5.2); RDW 13.9 % (11.6-15.6); WHITE BLOOD COUNT 8.9 K/mm3 (4.0-10.0)
[2019-10-13 17:42] LABS: ALBUMIN 3.6 g/dl (3.4-5.0); BILIRUBIN,TOTAL 0.6 mg/dL (0.2-1); BLOOD UREA NITROGEN 19.7 mg/dL (7-18); CREATININE 0.7 mg/dL (0.55-1.3); POTASSIUM 4.3 mmol/L (3.5-5.1); TOT PROT 6.7 g/dl (6.4-8.2)
[2019-10-13] MEDS ORDERED: MELATONIN 5 MG TABLETS PO SCH (22:00)
[2019-10-13] MEDS: THIAMINE HCL 100 MG TABLET (FP) PO SCH (22:27)
[2019-10-14] MEDS: hydrOXYzine PAMOATE 25 MG CAPSULE (FP) PO SCH ×2 (06:09→10:30)
[2019-10-14] MEDS ORDERED: METHADONE HCL 5 MG TABLET (FOR DETOX USE ONLY) ONE (09:12)
[2019-10-14] MEDS ORDERED: METHADONE HCL 10 MG TABLET (FOR DETOX USE ONLY) ONE (09:13)
[2019-10-14] MEDS ORDERED: METHADONE (DETOX) 20 MG, METHADONE (DETOX) 5 MG PO ONE (10:00)
[2019-10-14] MEDS: NICOTINE 7 MG/24 HOURS TOPICAL PATCH TD SCH (10:29)
[2019-10-14] MEDS: PRENATAL VITAMINS W/ FOLIC ACID TABLET (FP) PO SCH (10:30)
--- NOTE | 2019-10-14 11:08 | PN ---
S COWS - Scale Resting Pulse: 1= [place] 81-100 Sweatin=Flushed/Facial Moisture Restless Observation: 1= Difficult to Sit Still Pupil Size: 0= Normal to Room Light Bone or Joint Aches: 1= Mild Discomfort Runny Nose/ Eye Tearin= None GI Upset > 30mins: 0= None Tremor Observation of Outstretched Hands: 1= Tremor [place], Not Seen Yawning Observation: 1= 1-2x During Session Anxiety or Irritability: 2=Irritable/Anxious Goose Flesh Skin: 3=Piloerection COWS Score: 12 S Progress Note (SOAP) Subjective: irritable sweats chills agitation body aches my hair is in knots and i need some kind of hair conditioner. Objective: 10/14/19 11:10 Vital Signs Temperature 98.0 F 10/14/19 08:36 Pulse Rate 90 10/14/19 08:36 Respiratory Rate 18 10/14/19 08:36 Blood Pressure 106/68 10/14/19 08:36 O2 Sat by Pulse Oximetry (%) 97 10/14/19 06:00 Laboratory Tests 10/13/19 10/13/19 10/13/19 11:21 12:15 12:15 WBC 8.9 RBC 4.14 Hgb 12.6 Hct 38.1 MCV 92.0 MCH 30.5 MCHC 33.1 RDW 13.9 Plt Count 307 MPV 10.4 Sodium 139 Potassium 4.3 Chloride 106 Carbon Dioxide 25 Anion Gap 8 BUN 19.7 H Creatinine 0.7 Est GFR (CKD-EPI)AfAm 117.91 Est GFR (CKD-EPI)NonAf 101.74 Random Glucose 133 H Calcium 9.0 Total Bilirubin 0.6 AST 9 L ALT 16 Alkaline Phosphatase 79 Total Protein 6.7 Albumin 3.6 POC Urine HCG, Qual Negative Syphilis Serology 10/13/19 12:50 WBC RBC Hgb Hct MCV MCH MCHC RDW Plt Count MPV Sodium Potassium Chloride Carbon Dioxide Anion Gap BUN Creatinine Est GFR (CKD-EPI)AfAm Est GFR (CKD-EPI)NonAf Random Glucose Calcium Total Bilirubin AST ALT Alkaline Phosphatase Total Protein Albumin POC Urine HCG, Qual Syphilis Serology Reactive A* labs noted syphilis reactive A noted; pending titer aaox3 ambulating no acute distress Assessment: 10/14/19 11:10 withdrawals Plan: continue detox increase fluids pending rest of lab results selsun blue shampoo ordered and encouraged to put lotion with moisturizer..comb it, wash it off with the selsun shampoo. pt in agreement.
[2019-10-14] MEDS: SELENIUM SULFIDE 2.5% LOTION 4 OZ. TP SCH (13:39)
[2019-10-14] MEDS: THIAMINE HCL 100 MG TABLET (FP) PO SCH (21:27)
[2019-10-14] MEDS: MELATONIN 5 MG TABLETS PO PRN (21:27)
[2019-10-15] MEDS: hydrOXYzine PAMOATE 25 MG CAPSULE (FP) PO PRN ×2 (00:39→21:21)
[2019-10-15] MEDS ORDERED: METHADONE HCL 10 MG TABLET (FOR DETOX USE ONLY) PO ONE (10:00)
[2019-10-15] MEDS: NICOTINE 7 MG/24 HOURS TOPICAL PATCH TD SCH (10:17)
[2019-10-15] MEDS: SELENIUM SULFIDE 2.5% LOTION 4 OZ. TP SCH (10:18)
[2019-10-15] MEDS: PRENATAL VITAMINS W/ FOLIC ACID TABLET (FP) PO SCH (10:18)
--- NOTE | 2019-10-15 14:10 | PN ---
S COWS - Scale Resting Pulse: 1= [place] 81-100 Sweatin= No chills or Flushing Restless Observation: 1= Difficult to Sit Still Pupil Size: 1= Pupils >than Normal Bone or Joint Aches: 2= Severe Diffuse Aches Runny Nose/ Eye Tearin= Nasal Congestion GI Upset > 30mins: 2= Nausea/Diarrhea Tremor Observation of Outstretched Hands: 2= Slight Tremor Visible Yawning Observation: 1= 1-2x During Session Anxiety or Irritability: 2=Irritable/Anxious Goose Flesh Skin: 0=Smooth Skin COWS Score: 13 S Progress Note (SOAP) Subjective: alert,irritable,anxious,interrupted sleep,tremor,aching pain body and mindy k,nausea Objective: 10/15/19 14:08 Vital Signs Temperature 97.8 F 10/15/19 08:38 Pulse Rate 90 10/15/19 08:38 Respiratory Rate 17 10/15/19 08:38 Blood Pressure 115/65 10/15/19 08:38 O2 Sat by Pulse Oximetry (%) 97 10/15/19 08:38 Laboratory Last Values WBC 8.9 K/mm3 (4.0-10.0) 10/13/19 12:15 RBC 4.14 M/mm3 (3.60-5.2) 10/13/19 12:15 Hgb 12.6 GM/dL (10.7-15.3) 10/13/19 12:15 Hct 38.1 % (32.4-45.2) 10/13/19 12:15 MCV 92.0 fl (80-96) 10/13/19 12:15 MCH 30.5 pg (25.7-33.7) 10/13/19 12:15 MCHC 33.1 g/dl (32.0-36.0) 10/13/19 12:15 RDW 13.9 % (11.6-15.6) 10/13/19 12:15 Plt Count 307 K/MM3 (134-434) 10/13/19 12:15 MPV 10.4 fl (7.5-11.1) 10/13/19 12:15 Sodium 139 mmol/L (136-145) 10/13/19 12:15 Potassium 4.3 mmol/L (3.5-5.1) 10/13/19 12:15 Chloride 106 mmol/L (98-107) 10/13/19 12:15 Carbon Dioxide 25 mmol/L (21-32) 10/13/19 12:15 Anion Gap 8 MMOL/L (8-16) 10/13/19 12:15 BUN 19.7 mg/dL (7-18) H 10/13/19 12:15 Creatinine 0.7 mg/dL (0.55-1.3) 10/13/19 12:15 Est GFR (CKD-EPI)AfAm 117.91 10/13/19 12:15 Est GFR (CKD-EPI)NonAf 101.74 10/13/19 12:15 Random Glucose 133 mg/dL (74-106) H 10/13/19 12:15 Calcium 9.0 mg/dL (8.5-10.1) 10/13/19 12:15 Total Bilirubin 0.6 mg/dL (0.2-1) 10/13/19 12:15 AST 9 U/L (15-37) L 10/13/19 12:15 ALT 16 U/L (13-61) 10/13/19 12:15 Alkaline Phosphatase 79 U/L (45-117) 10/13/19 12:15 Total Protein 6.7 g/dl (6.4-8.2) 10/13/19 12:15 Albumin 3.6 g/dl (3.4-5.0) 10/13/19 12:15 POC Urine HCG, Qual Negative 10/13/19 11:21 Syphilis Serology Reactive (NONREACTIVE) A* 10/13/19 12:50 RPR Titer Reactive 1:1 (NONREACTIVE) H D 10/13/19 12:50 COVID-19 (KT) Not detected (Not Detected) 10/13/19 15:30 patient was adequately treated for syphilis with 3 injections in 1993 Assessment: 10/15/19 14:10 withdrawal symptom Plan: continue detox methadone regimen,psychiatric evaluation for zyprexa,bmp,fasting glucose in am
--- NOTE | 2019-10-15 14:40 | PN ---
[facility] Progress Note Note: Patient requests to be ordered Zyprexa 2.5 mg/hs which she is also prescribed by her psychiatrist. [facility], [address] [place] [id number] [phone]. According to phamacy staff, scripts for both Wellbutrin XL 150 mg/day and Zyprexa 2.5 mg/hs were filled on 10/10/19. Zyprexa 2.5 mg/hs ordered
[2019-10-15] MEDS: THIAMINE HCL 100 MG TABLET (FP) PO SCH (21:21)
[2019-10-15] MEDS: OLANZapine 2.5 MG TABLET PO SCH (21:22)
[2019-10-15] MEDS: MELATONIN 5 MG TABLETS PO PRN (21:22)
[2019-10-16] MEDS ORDERED: METHADONE HCL 5 MG TABLET (FOR DETOX USE ONLY) ONE (08:45)
[2019-10-16] MEDS ORDERED: METHADONE HCL 10 MG TABLET (FOR DETOX USE ONLY) ONE (08:46)
[2019-10-16] MEDS ORDERED: METHADONE (DETOX) 10 MG, METHADONE (DETOX) 5 MG PO ONE (10:00)
[2019-10-16] MEDS: PRENATAL VITAMINS W/ FOLIC ACID TABLET (FP) PO SCH (10:04)
[2019-10-16] MEDS: NICOTINE 7 MG/24 HOURS TOPICAL PATCH TD SCH (10:04)
[2019-10-16] MEDS: SELENIUM SULFIDE 2.5% LOTION 4 OZ. TP SCH (10:05)
[2019-10-16 11:12] LABS: BLOOD UREA NITROGEN 15.5 mg/dL (7-18); CALCIUM 8.9 mg/dL (8.5-10.1); CREATININE 0.7 mg/dL (0.55-1.3); POTASSIUM 4.7 mmol/L (3.5-5.1)
--- NOTE | 2019-10-16 11:12 | PN ---
[facility] COWS - Scale Resting Pulse: 0= NC 80 or Below Sweatin= Chills/Flushing Restless Observation: 0= Sits Still Pupil Size: 0= Normal to Room Light Bone or Joint Aches: 1= Mild Discomfort Runny Nose/ Eye Tearin= None GI Upset > 30mins: 0= None Tremor Observation of Outstretched Hands: 1= Tremor [place], Not Seen Yawning Observation: 2= >3x During Session Anxiety or Irritability: 2=Irritable/Anxious Goose Flesh Skin: 0=Smooth Skin COWS Score: 7 [facility] Progress Note (SOAP) Subjective: sweats chills body aches Objective: 10/16/19 11:11 Vital Signs Temperature 98.0 F 10/16/19 08:47 Pulse Rate 79 10/16/19 08:47 Respiratory Rate 17 10/16/19 08:47 Blood Pressure 111/62 10/16/19 08:47 O2 Sat by Pulse Oximetry (%) 95 10/16/19 05:43 aaox3 lying in bed no acute distress Assessment: 10/16/19 11:11 withdrawals Plan: continue detox increase fluids
[2019-10-16] MEDS: hydrOXYzine PAMOATE 25 MG CAPSULE (FP) PO PRN ×2 (16:38→21:03)
[2019-10-16] MEDS: THIAMINE HCL 100 MG TABLET (FP) PO SCH (21:04)
[2019-10-16] MEDS: MELATONIN 5 MG TABLETS PO PRN (21:04)
[2019-10-16] MEDS: OLANZapine 2.5 MG TABLET PO SCH (21:04)
[2019-10-17] MEDS ORDERED: METHADONE HCL 10 MG TABLET (FOR DETOX USE ONLY) PO ONE (10:00)
[2019-10-17] MEDS: PRENATAL VITAMINS W/ FOLIC ACID TABLET (FP) PO SCH (10:33)
[2019-10-17] MEDS: NICOTINE 7 MG/24 HOURS TOPICAL PATCH TD SCH (10:33)
[2019-10-17] MEDS: SELENIUM SULFIDE 2.5% LOTION 4 OZ. TP SCH (10:33)
--- NOTE | 2019-10-17 13:49 | PN ---
[facility] COWS - Scale Resting Pulse: 1= [place] 81-100 Sweatin= No chills or Flushing Restless Observation: 0= Sits Still Pupil Size: 0= Normal to Room Light Bone or Joint Aches: 1= Mild Discomfort Runny Nose/ Eye Tearin= Nasal Congestion GI Upset > 30mins: 1= Stomach Cramp Tremor Observation of Outstretched Hands: 1= Tremor [place], Not Seen Yawning Observation: 1= 1-2x During Session Anxiety or Irritability: 1=Feels Anxious/Irritable Goose Flesh Skin: 0=Smooth Skin COWS Score: 7 S Progress Note (SOAP) Subjective: alert,irritable,anxious,interrupted sleep,,pain in the body and back Objective: 10/17/19 13:51 Vital Signs Temperature 97.1 F L 10/17/19 08:42 Pulse Rate 82 10/17/19 08:42 Respiratory Rate 17 10/17/19 08:42 Blood Pressure 125/77 10/17/19 08:42 O2 Sat by Pulse Oximetry (%) 96 10/17/19 05:48 Laboratory Last Values WBC 8.9 K/mm3 (4.0-10.0) 10/13/19 12:15 RBC 4.14 M/mm3 (3.60-5.2) 10/13/19 12:15 Hgb 12.6 GM/dL (10.7-15.3) 10/13/19 12:15 Hct 38.1 % (32.4-45.2) 10/13/19 12:15 MCV 92.0 fl (80-96) 10/13/19 12:15 MCH 30.5 pg (25.7-33.7) 10/13/19 12:15 MCHC 33.1 g/dl (32.0-36.0) 10/13/19 12:15 RDW 13.9 % (11.6-15.6) 10/13/19 12:15 Plt Count 307 K/MM3 (134-434) 10/13/19 12:15 MPV 10.4 fl (7.5-11.1) 10/13/19 12:15 Sodium 138 mmol/L (136-145) 10/16/19 07:50 Potassium 4.7 mmol/L (3.5-5.1) 10/16/19 07:50 Chloride 102 mmol/L (98-107) 10/16/19 07:50 Carbon Dioxide 33 mmol/L (21-32) H 10/16/19 07:50 Anion Gap 3 MMOL/L (8-16) L 10/16/19 07:50 BUN 15.5 mg/dL (7-18) 10/16/19 07:50 Creatinine 0.7 mg/dL (0.55-1.3) 10/16/19 07:50 Est GFR (CKD-EPI)AfAm 117.91 10/16/19 07:50 Est GFR (CKD-EPI)NonAf 101.74 10/16/19 07:50 Random Glucose 84 mg/dL (74-106) 10/16/19 07:50 Fasting Glucose 86 mg/dL (74-106) 10/16/19 07:50 Calcium 8.9 mg/dL (8.5-10.1) 10/16/19 07:50 Total Bilirubin 0.6 mg/dL (0.2-1) 10/13/19 12:15 AST 9 U/L (15-37) L 10/13/19 12:15 ALT 16 U/L (13-61) 10/13/19 12:15 Alkaline Phosphatase 79 U/L (45-117) 10/13/19 12:15 Total Protein 6.7 g/dl (6.4-8.2) 10/13/19 12:15 Albumin 3.6 g/dl (3.4-5.0) 10/13/19 12:15 POC Urine HCG, Qual Negative 10/13/19 11:21 Syphilis Serology Reactive (NONREACTIVE) A* 10/13/19 12:50 RPR Titer Reactive 1:1 (NONREACTIVE) H D 10/13/19 12:50 COVID-19 (KT) Not detected (Not Detected) 10/13/19 15:30 10/17/19 13:53 adequately treated for syphilis with 3 injections in the past Assessment: 10/17/19 13:54 withdrawal symptom Plan: continue detox methadone regimen,discharge in am
[2019-10-17] MEDS: OLANZapine 2.5 MG TABLET PO SCH (21:17)
[2019-10-17] MEDS: hydrOXYzine PAMOATE 25 MG CAPSULE (FP) PO PRN (21:17)
[2019-10-17] MEDS: THIAMINE HCL 100 MG TABLET (FP) PO SCH (21:17)
[2019-10-17] MEDS: MELATONIN 5 MG TABLETS PO PRN (21:17)
[2019-10-18] MEDS ORDERED: METHADONE HCL 5 MG TABLET (FOR DETOX USE ONLY) PO ONE (06:00)
[2019-10-18 09:55] VITALS: BP 118/70; PULSE 76; TEMP 98
[2019-10-18] MEDS: SELENIUM SULFIDE 2.5% LOTION 4 OZ. TP SCH (10:44)
[2019-10-18] MEDS: PRENATAL VITAMINS W/ FOLIC ACID TABLET (FP) PO SCH (10:44)
[2019-10-18] MEDS: NICOTINE 7 MG/24 HOURS TOPICAL PATCH TD SCH (10:44)
--- NOTE | 2019-10-18 13:22 | DS ---
[facility] Detox Discharge Summary Admission Date: 10/13/19 Discharge Date: 10/18/19 - History Present History: Cocaine Dependence, Opioid Dependence Additional Comments: Alert and oriented x 3, in no acute respiratory distress. Full ROM, ambulating in the unit without assistance. Detox protocol completed, pt stable to be discharged to [facility]. Pertinent Past History: History of Bipolar, depression, heroin,cocaine, THC and Nicotine use disorder. - Physical Exam Results Vital Signs: Vital Signs Temperature 98 F 10/18/19 08:38 Pulse Rate 76 10/18/19 08:38 Respiratory Rate 18 10/18/19 08:38 Blood Pressure 118/70 10/18/19 08:38 O2 Sat by Pulse Oximetry (%) 99 10/18/19 08:38 Vital Signs 10/18/19 10/18/19 05:31 08:38 Temperature 97.1 F L 98 F Pulse Rate 78 76 Respiratory 16 18 Rate Blood Pressure 98/70 118/70 O2 Sat by Pulse 97 99 Oximetry (%) Laboratory Last Values WBC 8.9 K/mm3 (4.0-10.0) 10/13/19 12:15 RBC 4.14 M/mm3 (3.60-5.2) 10/13/19 12:15 Hgb 12.6 GM/dL (10.7-15.3) 10/13/19 12:15 Hct 38.1 % (32.4-45.2) 10/13/19 12:15 MCV 92.0 fl (80-96) 10/13/19 12:15 MCH 30.5 pg (25.7-33.7) 10/13/19 12:15 MCHC 33.1 g/dl (32.0-36.0) 10/13/19 12:15 RDW 13.9 % (11.6-15.6) 10/13/19 12:15 Plt Count 307 K/MM3 (134-434) 10/13/19 12:15 MPV 10.4 fl (7.5-11.1) 10/13/19 12:15 Sodium 138 mmol/L (136-145) 10/16/19 07:50 Potassium 4.7 mmol/L (3.5-5.1) 10/16/19 07:50 Chloride 102 mmol/L (98-107) 10/16/19 07:50 Carbon Dioxide 33 mmol/L (21-32) H 10/16/19 07:50 Anion Gap 3 MMOL/L (8-16) L 10/16/19 07:50 BUN 15.5 mg/dL (7-18) 10/16/19 07:50 Creatinine 0.7 mg/dL (0.55-1.3) 10/16/19 07:50 Est GFR (CKD-EPI)AfAm 117.91 10/16/19 07:50 Est GFR (CKD-EPI)NonAf 101.74 10/16/19 07:50 Random Glucose 84 mg/dL (74-106) 10/16/19 07:50 Fasting Glucose 86 mg/dL (74-106) 10/16/19 07:50 Calcium 8.9 mg/dL (8.5-10.1) 10/16/19 07:50 Total Bilirubin 0.6 mg/dL (0.2-1) 10/13/19 12:15 AST 9 U/L (15-37) L 10/13/19 12:15 ALT 16 U/L (13-61) 10/13/19 12:15 Alkaline Phosphatase 79 U/L (45-117) 10/13/19 12:15 Total Protein 6.7 g/dl (6.4-8.2) 10/13/19 12:15 Albumin 3.6 g/dl (3.4-5.0) 10/13/19 12:15 POC Urine HCG, Qual Negative 10/13/19 11:21 Syphilis Serology Reactive (NONREACTIVE) A* 10/13/19 12:50 RPR Titer Reactive 1:1 (NONREACTIVE) H D 10/13/19 12:50 COVID-19 (KT) Not detected (Not Detected) 10/13/19 15:30 Labs noted. Pertinent Admission Physical Exam Findings: Withdrawal symptoms. - Treatment Hospital Course: Detox Protocol Followed, Detoxed Safely, Responded well, Discharged Condition Good, Rehab Referral Accepted - Medication Discharge Medications: Ambulatory Orders Bupropion HCl [Wellbutrin Xl -] 300 mg PO DAILY #30 tab.sr.24h 05/04/19 Olanzapine [Zyprexa -] 2.5 mg PO HS 10/13/19 - Diagnosis (1) Cocaine abuse Status: Chronic (2) Opioid dependence with withdrawal Status: Acute (3) Nicotine dependence Status: Chronic Qualifiers: (4) Opioid dependence Status: Chronic - AMA Did Patient Leave Against Medical Advice: No
== END 2019-10-18 11:00 | disposition other institution (70) | DRG 773 ==
LOC: YASAS 10:29 → Y6N 12:14
PROVIDERS: ADMIT Allergy & Immunology; ATTEND Allergy & Immunology
PROC: HZ2ZZZZ Detoxification Services for Substance Abuse Treatment (ICD-10-PCS; principal; 2019-10-13)
DX: F11.23 Opioid dependence with withdrawal (principal); F14.10 Cocaine abuse, uncomplicated; F12.10 Cannabis abuse, uncomplicated; F17.210 Nicotine dependence, cigarettes, uncomplicated; F31.81 Bipolar II disorder; F19.282 Other psychoactive substance dependence with psychoactive substance-induced sleep disorder; F19.24 Other psychoactive substance dependence with psychoactive substance-induced mood disorder; Z86.19 Personal history of other infectious and parasitic diseases; Z56.0 Unemployment, unspecified
CPT/HCPCS: 36415; 80048; 80053; 81025; 82947; 85027; 86593; 86780; U0003

== ENCOUNTER 2019-10-18 11:05 | Inpatient (IN) | payer OTHER ==
[2019-10-18] MEDS ORDERED: MAG HYDROX/AL HYDROX/SIMETH 30 ML UNIT-DOSE CUP PO PRN (13:07)
[2019-10-18] MEDS ORDERED: LOPERAMIDE HCL 2 MG CAPSULE PO PRN (13:07)
[2019-10-18] MEDS ORDERED: MENTHOL/PHENOL 1 EACH UD MM PRN (13:07)
[2019-10-18] MEDS ORDERED: MAGNESIUM HYDROX 2400MG/30ML ORAL SUSPENSION 30 ML CUP PO PRN (13:07)
[2019-10-18] MEDS ORDERED: ACETAMINOPHEN 325 MG TABLET (FP) PO PRN (13:07)
[2019-10-18] MEDS ORDERED: MAGNESIUM CITRATE 300 ML BOTTLE PO PRN (13:07)
[2019-10-18] MEDS ORDERED: guaiFENesin 200 MG/10 ML 10 ML UNIT-DOSE CUPS PO PRN (13:07)
[2019-10-18] MEDS ORDERED: P-EPHED 60MG/TRIPROLIDI 2.5MG TABLET PO PRN (13:07)
[2019-10-18] MEDS ORDERED: NICOTINE POLACRILEX 2 MG GUM BUC PRN (13:07)
[2019-10-18] MEDS ORDERED: COLLOIDAL OATMEAL 1 BAR EACH TP PRN (13:10)
--- NOTE | 2019-10-18 13:25 | HP ---
[facility] Re[facility] Assess/Revision - Admission History Admitted to Rehab from: [facility] Date of Admission to Rehab: 10/18/2019 - Vital signs Vital Signs: Vital Signs Period Temp Pulse Resp BP Sys/Bruno Pulse Ox Last 24 Hr 97.3 F 81 18 116/81 Vital Signs 10/18/19 11:18 Temperature 97.3 F L Pulse Rate 81 Respiratory 18 Rate Blood Pressure 116/81 - Findings Detox History & Physical reviewed: Yes Concur with findings: Yes Inpatient Rehab Admission - Rehab Decision to Admit Inpatient rehab admission?: Yes - Initial Determination Are CD services needed?: Yes Free of communicable disease: Yes Not in need of hospitalization: Yes - Rehab Admission Criteria Previous failed treatment: Yes Poor recovery environment: Yes Comorbidities: Yes Lacks judgement: Yes Patient is meeting Inpatient Rehab admission criteria:: Yes
[2019-10-18] MEDS: THIAMINE HCL 100 MG TABLET (FP) PO SCH (21:31)
[2019-10-18] MEDS: MELATONIN 5 MG TABLETS PO SCH (21:31)
[2019-10-18] MEDS: hydrOXYzine PAMOATE 25 MG CAPSULE (FP) PO PRN (21:31)
--- NOTE | 2019-10-19 11:54 | CONSULT ---
[facility] Psychiatric Consult - Data Date of interview: 10/19/19 Admission source: [facility] Identifying data: Patient is a 49 year old single female, without children, unemployed, domiciled, and is supported by [facility]. This is one of multiple admissions for patient. Patient admitted to [facility] for opioid, cocaine, and cannabis dependence. Substance Abuse History: Smoking Cessation. Smoking history: Current every day smoker. Have you smoked in the past 12 months: Yes. Aproximately how many cigarettes per day: 10. Hx Chewing Tobacco Use: No. Initiated information on smoking cessation: Yes. 'Breaking Loose' booklet given: 10/20/19. - Substances abused. Heroin. Substance route: Injection. Amount used: 2-3 bags. Age of first use: 45. Date of last use: 10/13/19. Cocaine. Substance route: Inhalation. Frequency: 1-3 times last 30 days. Amount used: 1 line. Age of first use: 45. Date of last use: 10/11/19. Marijuana/Hashish. Other (specify): sporadic use. Substance route: Smoking. Frequency: 1-3 times last 30 days. Amount used: 1 blunt. Age of first use: 18. Date of last use: 10/11/19 Medical History: Unremarkable. Psychiatric History: Ms. Machado first psychiatric contact was for mood instability while visiting a friend in [place] in 1996. She was diagnosed with MDD and prescribed Zoloft. 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 States that her diagnosis was later revised to Bipolar Disorder. Patient has had past treatment with Paxil 20mg + Lamital 100mg /day. Patient is currently provided with outpatient psychiaric care at [facility] and reports taking Wellbutrin 300mg XL + Zyprexa 2.5mg HS. Patient seen by Dr. Varela and was resumed on medications. History of one suicide attempt in 2010 via overdose. Patient denies suicidal/ homicidal ideation. Physical/Sexual Abuse/Trauma History: denies. Mental Status Exam - Mental Status Exam Alert and Oriented to: Time, Place, Person Cognitive Function: Good Patient Appearance: Well Groomed Mood: Euthymic Affect: Mood Congruent Patient Behavior: Appropriate, Cooperative Speech Pattern: Appropriate Voice Loudness: Normal Thought Process: Intact, Goal Oriented Thought Disorder: Not Present Hallucinations: Denies Suicidal Ideation: Denies Homicidal Ideation: Denies Insight/Judgement: Poor Sleep: Fair Appetite: Fair Muscle strength/Tone: Normal Gait/Station: Normal Psychiatric Findings - Problem List ([place] 1, 2,3) (1) Opioid dependence Current Visit: Yes Status: Acute (2) Bipolar II disorder Current Visit: Yes Status: Chronic (3) Cannabis abuse Current Visit: Yes Status: Acute (4) Cocaine abuse Current Visit: Yes Status: Acute - Initial Treatment Plan Initial Treatment Plan: Psychoeducation provided. Rehab in progress. Will continue Wellbutrin 300mg XL + Zyprexa 2.5mg HS. Benefits and side effects discussed. Verbal consent given.
[2019-10-19] MEDS: PRENATAL VITAMINS W/ FOLIC ACID TABLET (FP) PO SCH (13:03)
[2019-10-19] MEDS: hydrOXYzine PAMOATE 25 MG CAPSULE (FP) PO PRN ×2 (13:03→21:36)
[2019-10-19] MEDS: NICOTINE 7 MG/24 HOURS TOPICAL PATCH TD SCH (13:04)
[2019-10-19] MEDS: MINERAL OIL/PETROLAT/WATER TOPICAL CREAM 113 GM JAR TP SCH (13:05)
[2019-10-19] MEDS: MELATONIN 5 MG TABLETS PO SCH (21:36)
[2019-10-19] MEDS: THIAMINE HCL 100 MG TABLET (FP) PO SCH (21:36)
[2019-10-19] MEDS: OLANZapine 2.5 MG TABLET PO SCH (21:36)
[2019-10-20] MEDS: MINERAL OIL/PETROLAT/WATER TOPICAL CREAM 113 GM JAR TP SCH (10:15)
[2019-10-20] MEDS: NICOTINE 7 MG/24 HOURS TOPICAL PATCH TD SCH (10:15)
[2019-10-20] MEDS: PRENATAL VITAMINS W/ FOLIC ACID TABLET (FP) PO SCH (10:15)
[2019-10-20] MEDS ORDERED: PT OWN MED DRAWER 7, Y5N ONE (10:20)
[2019-10-20] MEDS: SELENIUM SULFIDE 2.5% LOTION 4 OZ. TP SCH (13:02)
[2019-10-20] MEDS: IBUPROFEN 400 MG TABLET (FP) PO PRN (13:03)
[2019-10-20] MEDS: hydrOXYzine PAMOATE 25 MG CAPSULE (FP) PO PRN ×2 (13:03→21:14)
[2019-10-20] MEDS: MELATONIN 5 MG TABLETS PO SCH (21:14)
[2019-10-20] MEDS: THIAMINE HCL 100 MG TABLET (FP) PO SCH (21:14)
[2019-10-20] MEDS: OLANZapine 2.5 MG TABLET PO SCH (21:14)
[2019-10-21] MEDS: PRENATAL VITAMINS W/ FOLIC ACID TABLET (FP) PO SCH (10:15)
[2019-10-21] MEDS: hydrOXYzine PAMOATE 25 MG CAPSULE (FP) PO PRN ×2 (10:16→21:16)
[2019-10-21] MEDS: IBUPROFEN 400 MG TABLET (FP) PO PRN (10:16)
[2019-10-21] MEDS: NICOTINE 7 MG/24 HOURS TOPICAL PATCH TD SCH (10:16)
[2019-10-21] MEDS: SELENIUM SULFIDE 2.5% LOTION 4 OZ. TP SCH (10:17)
[2019-10-21] MEDS: MINERAL OIL/PETROLAT/WATER TOPICAL CREAM 113 GM JAR TP SCH (10:18)
[2019-10-21] MEDS: MELATONIN 5 MG TABLETS PO SCH (21:16)
[2019-10-21] MEDS: THIAMINE HCL 100 MG TABLET (FP) PO SCH (21:16)
[2019-10-21] MEDS: OLANZapine 2.5 MG TABLET PO SCH (21:17)
[2019-10-22] MEDS: IBUPROFEN 400 MG TABLET (FP) PO PRN ×2 (06:23→17:26)
[2019-10-22] MEDS: hydrOXYzine PAMOATE 25 MG CAPSULE (FP) PO PRN (06:23)
[2019-10-22] MEDS ORDERED: PT OWN MED DRAWER 7, Y5N ONE (08:23)
[2019-10-22] MEDS: SELENIUM SULFIDE 2.5% LOTION 4 OZ. TP SCH (08:24)
[2019-10-22] MEDS: NICOTINE 7 MG/24 HOURS TOPICAL PATCH TD SCH (09:52)
[2019-10-22] MEDS: MINERAL OIL/PETROLAT/WATER TOPICAL CREAM 113 GM JAR TP SCH (09:52)
[2019-10-22] MEDS: PRENATAL VITAMINS W/ FOLIC ACID TABLET (FP) PO SCH (09:52)
[2019-10-22] MEDS ORDERED: hydrOXYzine PAMOATE 50 MG CAPSULE (FP) PO PRN (10:47)
--- NOTE | 2019-10-22 10:49 | PN ---
S Progress Note Note: Patient states: " I have bad anxiety." HPI: seen by psychiatry, medications re-started. Vital Signs Period Temp Pulse Resp BP Sys/Bruno Pulse Ox Last 24 Hr 97.7 F-97.7 F 88 18 113/79 96-98 General: no apparent distress HEENTM: normocephalic, PERRLA, EOMI MSK: full weight bearing Neuro: A+O x4, CN 2-12 intact, A/P Anxiety Vistaril increased.
[2019-10-22] MEDS: hydrOXYzine PAMOATE 50 MG CAPSULE (FP) PO PRN ×3 (13:34→21:28)
[2019-10-22] MEDS: THIAMINE HCL 100 MG TABLET (FP) PO SCH (21:27)
[2019-10-22] MEDS: MELATONIN 5 MG TABLETS PO SCH (21:27)
[2019-10-22] MEDS: OLANZapine 2.5 MG TABLET PO SCH (21:28)
[2019-10-23] MEDS ORDERED: SELENIUM SULFIDE 2.5% LOTION 4 OZ. TP SCH ×2 (06:00)
[2019-10-23] MEDS: SELENIUM SULFIDE 2.5% LOTION 4 OZ. TP SCH (06:03)
[2019-10-23] MEDS: hydrOXYzine PAMOATE 50 MG CAPSULE (FP) PO PRN ×5 (06:04→22:45)
[2019-10-23] MEDS: PRENATAL VITAMINS W/ FOLIC ACID TABLET (FP) PO SCH (10:17)
[2019-10-23] MEDS: IBUPROFEN 400 MG TABLET (FP) PO PRN (10:18)
[2019-10-23] MEDS: NICOTINE 7 MG/24 HOURS TOPICAL PATCH TD SCH (10:19)
[2019-10-23] MEDS: MINERAL OIL/PETROLAT/WATER TOPICAL CREAM 113 GM JAR TP SCH (10:19)
[2019-10-23] MEDS: OLANZapine 2.5 MG TABLET PO SCH ×2 (21:57→22:21)
[2019-10-23] MEDS: THIAMINE HCL 100 MG TABLET (FP) PO SCH ×2 (21:57→22:21)
[2019-10-23] MEDS: MELATONIN 5 MG TABLETS PO SCH ×2 (21:57→22:21)
[2019-10-24] MEDS: hydrOXYzine PAMOATE 50 MG CAPSULE (FP) PO PRN ×3 (06:38→21:20)
[2019-10-24] MEDS: SELENIUM SULFIDE 2.5% LOTION 4 OZ. TP SCH (06:38)
--- NOTE | 2019-10-24 08:17 | PN ---
[facility] Progress Note Note: Patient reports feeling anxious despite being currently on Wellbutrin XL 300 mg/day, Zyprexa 2.5 mg/hs and Vistaril 50 mg po Q4 hrs prn. She requests to be ordered Gabapentin to which she responded well in the past. Will start Gabapentin 200 mg/bid
[2019-10-24] MEDS ORDERED: GABAPENTIN 100 MG CAPSULE PO SCH (10:00)
[2019-10-24] MEDS: PRENATAL VITAMINS W/ FOLIC ACID TABLET (FP) PO SCH (10:16)
[2019-10-24] MEDS: NICOTINE 7 MG/24 HOURS TOPICAL PATCH TD SCH (10:17)
[2019-10-24] MEDS: MINERAL OIL/PETROLAT/WATER TOPICAL CREAM 113 GM JAR TP SCH (10:18)
[2019-10-24] MEDS: IBUPROFEN 400 MG TABLET (FP) PO PRN (14:12)
--- NOTE | 2019-10-24 15:25 | PN ---
[facility] Progress Note Note: Told by nursing staff that patient has been refusing to take Gabapentin. Will discontinue Gabapentin
[2019-10-24] MEDS: MELATONIN 5 MG TABLETS PO SCH (21:19)
[2019-10-24] MEDS: OLANZapine 2.5 MG TABLET PO SCH (21:20)
[2019-10-24] MEDS: THIAMINE HCL 100 MG TABLET (FP) PO SCH (21:20)
[2019-10-25] MEDS ORDERED: PT OWN MED DRAWER 7, Y5N ONE ×2 (03:48→08:51)
[2019-10-25] MEDS: SELENIUM SULFIDE 2.5% LOTION 4 OZ. TP SCH (06:23)
[2019-10-25] MEDS: hydrOXYzine PAMOATE 50 MG CAPSULE (FP) PO PRN ×2 (09:43→21:26)
[2019-10-25] MEDS: PRENATAL VITAMINS W/ FOLIC ACID TABLET (FP) PO SCH (09:43)
[2019-10-25] MEDS: MINERAL OIL/PETROLAT/WATER TOPICAL CREAM 113 GM JAR TP SCH (09:44)
[2019-10-25] MEDS: NICOTINE 7 MG/24 HOURS TOPICAL PATCH TD SCH (09:44)
[2019-10-25] MEDS: IBUPROFEN 400 MG TABLET (FP) PO PRN (12:48)
[2019-10-25] MEDS: MELATONIN 5 MG TABLETS PO SCH (21:25)
[2019-10-25] MEDS: THIAMINE HCL 100 MG TABLET (FP) PO SCH (21:25)
[2019-10-25] MEDS: OLANZapine 2.5 MG TABLET PO SCH (21:25)
[2019-10-26] MEDS: hydrOXYzine PAMOATE 50 MG CAPSULE (FP) PO PRN ×2 (06:28→21:24)
[2019-10-26] MEDS: SELENIUM SULFIDE 2.5% LOTION 4 OZ. TP SCH (06:28)
[2019-10-26] MEDS: PRENATAL VITAMINS W/ FOLIC ACID TABLET (FP) PO SCH (10:03)
[2019-10-26] MEDS: IBUPROFEN 400 MG TABLET (FP) PO PRN (10:04)
[2019-10-26] MEDS: NICOTINE 7 MG/24 HOURS TOPICAL PATCH TD SCH (10:04)
[2019-10-26] MEDS: MINERAL OIL/PETROLAT/WATER TOPICAL CREAM 113 GM JAR TP SCH (10:04)
[2019-10-26] MEDS: OLANZapine 2.5 MG TABLET PO SCH (21:24)
[2019-10-26] MEDS: MELATONIN 5 MG TABLETS PO SCH (21:24)
[2019-10-26] MEDS: THIAMINE HCL 100 MG TABLET (FP) PO SCH (21:24)
[2019-10-27] MEDS: SELENIUM SULFIDE 2.5% LOTION 4 OZ. TP SCH (06:02)
[2019-10-27] MEDS: MINERAL OIL/PETROLAT/WATER TOPICAL CREAM 113 GM JAR TP SCH (11:08)
[2019-10-27] MEDS: PRENATAL VITAMINS W/ FOLIC ACID TABLET (FP) PO SCH (11:08)
[2019-10-27] MEDS: hydrOXYzine PAMOATE 50 MG CAPSULE (FP) PO PRN ×2 (11:10→21:36)
[2019-10-27] MEDS: NICOTINE 7 MG/24 HOURS TOPICAL PATCH TD SCH (11:12)
--- NOTE | 2019-10-27 11:16 | PN ---
S Progress Note Note: Patient requests that Zyprexa dosage be increased to 5 mg/hs. Will increase Zyprexa to 5 mg/hs
[2019-10-27] MEDS: OLANZapine 5 MG TABLET PO SCH (21:35)
[2019-10-27] MEDS: MELATONIN 5 MG TABLETS PO SCH (21:36)
[2019-10-27] MEDS: IBUPROFEN 400 MG TABLET (FP) PO PRN (21:36)
[2019-10-27] MEDS: THIAMINE HCL 100 MG TABLET (FP) PO SCH (21:36)
[2019-10-28] MEDS: hydrOXYzine PAMOATE 50 MG CAPSULE (FP) PO PRN ×3 (06:08→21:19)
[2019-10-28] MEDS: PRENATAL VITAMINS W/ FOLIC ACID TABLET (FP) PO SCH (09:48)
[2019-10-28] MEDS: NICOTINE 7 MG/24 HOURS TOPICAL PATCH TD SCH (09:49)
[2019-10-28] MEDS: MINERAL OIL/PETROLAT/WATER TOPICAL CREAM 113 GM JAR TP SCH (09:49)
[2019-10-28] MEDS: THIAMINE HCL 100 MG TABLET (FP) PO SCH (21:19)
[2019-10-28] MEDS: OLANZapine 5 MG TABLET PO SCH (21:19)
[2019-10-28] MEDS: MELATONIN 5 MG TABLETS PO SCH (21:19)
[2019-10-29] MEDS: hydrOXYzine PAMOATE 50 MG CAPSULE (FP) PO PRN ×3 (05:39→21:18)
[2019-10-29] MEDS: IBUPROFEN 400 MG TABLET (FP) PO PRN (05:39)
[2019-10-29] MEDS: SELENIUM SULFIDE 2.25% 180 ML SHAMPOO TP SCH (05:56)
[2019-10-29] MEDS: PRENATAL VITAMINS W/ FOLIC ACID TABLET (FP) PO SCH (10:03)
[2019-10-29] MEDS: NICOTINE 7 MG/24 HOURS TOPICAL PATCH TD SCH (10:05)
[2019-10-29] MEDS: MINERAL OIL/PETROLAT/WATER TOPICAL CREAM 113 GM JAR TP SCH (10:05)
[2019-10-29] MEDS: THIAMINE HCL 100 MG TABLET (FP) PO SCH (21:18)
[2019-10-29] MEDS: MELATONIN 5 MG TABLETS PO SCH (21:18)
[2019-10-29] MEDS: OLANZapine 5 MG TABLET PO SCH (21:18)
[2019-10-30] MEDS: SELENIUM SULFIDE 2.25% 180 ML SHAMPOO TP SCH (07:22)
[2019-10-30] MEDS: NICOTINE 7 MG/24 HOURS TOPICAL PATCH TD SCH (10:03)
[2019-10-30] MEDS: MINERAL OIL/PETROLAT/WATER TOPICAL CREAM 113 GM JAR TP SCH (10:03)
[2019-10-30] MEDS: PRENATAL VITAMINS W/ FOLIC ACID TABLET (FP) PO SCH (10:03)
[2019-10-30] MEDS: hydrOXYzine PAMOATE 50 MG CAPSULE (FP) PO PRN ×2 (10:04→21:10)
--- NOTE | 2019-10-30 11:01 | PN ---
[facility] Progress Note Note: Patient is scheduled for discharge tomorrow. Scripts for 30 days supply of medications(Wellbutrin XL 300 m/day, Zyprexa 5 mg/hs) will be electronically transmitted to [facility], [address] [place] [id number]
[2019-10-30 20:45] VITALS: TEMP 98
[2019-10-30] MEDS: MELATONIN 5 MG TABLETS PO SCH (21:10)
[2019-10-30] MEDS: OLANZapine 5 MG TABLET PO SCH (21:10)
[2019-10-30] MEDS: THIAMINE HCL 100 MG TABLET (FP) PO SCH (21:10)
[2019-10-31] MEDS: SELENIUM SULFIDE 2.25% 180 ML SHAMPOO TP SCH (06:21)
[2019-10-31 06:49] VITALS: BP 110/76; PULSE 92
[2019-10-31] MEDS: hydrOXYzine PAMOATE 50 MG CAPSULE (FP) PO PRN (08:57)
[2019-10-31] MEDS: PRENATAL VITAMINS W/ FOLIC ACID TABLET (FP) PO SCH (09:00)
[2019-10-31] MEDS: MINERAL OIL/PETROLAT/WATER TOPICAL CREAM 113 GM JAR TP SCH (09:01)
[2019-10-31] MEDS: NICOTINE 7 MG/24 HOURS TOPICAL PATCH TD SCH (09:01)
[2019-10-31] MEDS ORDERED: PT OWN MED DRAWER 7, Y5N ONE (09:02)
--- NOTE | 2019-10-31 09:40 | DS ---
[facility] Rehab Discharge Summary - [facility] Rehab Discharge Summary Admission Date: 10/18/19 Discharge Date: 10/31/19 - History Present History: Cocaine dependence, Opioid dependence - Discharge Physical Exam Vital Signs: Vital Signs Temperature 98.0 F 10/31/19 06:47 Pulse Rate 92 H 10/31/19 06:47 Respiratory Rate 16 10/31/19 06:47 Blood Pressure 110/76 10/31/19 06:47 O2 Sat by Pulse Oximetry (%) 98 10/31/19 06:47 Ambulatory Orders Bupropion HCl [Wellbutrin Xl -] 300 mg PO DAILY #30 tab.sr.24h 10/30/19 Olanzapine [Zyprexa -] 5 mg PO HS #30 tablet 10/30/19 ROS: DENIES SHAKES, SWEATING, HEADACHE AND OPIOD CRAVINGS PE: ALERT AND ORIENTED X 3 SKIN WARM AND DRY IN NAD EXT FULL ROM, AMB AD BG NO TREMORS DENIES SI/HI A/P: OPIOD/TARAN DEPENDENCE PATIENT IS MEDICALLY STABLE FOR DISCHARGE AFTERCARE ARRANGED FOR [facility] OTP - Treatment Discharge Condition: Discharge condition good Hospital Course: PATIENT DISCHARGED FOR REHAB TODAY FOR OPIOD/COCAINE DEPENDENCE. PATIENT IS MEDICALLY STABLE AND DENIES SI/HI. DURING COURSE OF TREATMENT, PATIENT ATTENDED GROUP MEETINGS, 1:1 SESSIONS WITH COUNSELING TEAM AND EVALUATED AND TREATED BY PSYCH. AFTERCARE ARRANGED FOR [facility] OTP AND PATIENT MEDICALLY ADVISED TO FOLLOW UP WITH PCP RECOMMENDED. Ambulatory Orders Bupropion HCl [Wellbutrin Xl -] 300 mg PO DAILY #30 tab.sr.24h 10/30/19 Olanzapine [Zyprexa -] 5 mg PO HS #30 tablet 10/30/19 - Medication Discharge Medications: Ambulatory Orders Bupropion HCl [Wellbutrin Xl -] 300 mg PO DAILY #30 tab.sr.24h 10/30/19 Olanzapine [Zyprexa -] 5 mg PO HS #30 tablet 10/30/19 - Medication-Assisted Treatment (MAT) Medication-Assisted Treatment (MAT): No MAT Follow-up Referral: [facility] OTP - Discharge Instructions Diet, activity, other medical instructions: Diet: REGULAR TOLERATED Activity: TOLERATED Other medical instructions: F/U WITH PCP RECOMMENDED - Follow-up Referral Minutes to complete discharge: 30 - AMA Did Patient Leave Against Medical Advice: No
== END 2019-10-31 09:34 | disposition home or self-care (01) | DRG 772 ==
LOC: YASAS 11:05 → Y3W 11:06
PROVIDERS: ADMIT Allergy & Immunology; ATTEND Allergy & Immunology
PROC: HZ42ZZZ Group Counseling for Substance Abuse Treatment, Cognitive-Behavioral (ICD-10-PCS; principal; 2019-10-18)
DX: F11.20 Opioid dependence, uncomplicated (principal); F14.10 Cocaine abuse, uncomplicated; F12.10 Cannabis abuse, uncomplicated; F17.210 Nicotine dependence, cigarettes, uncomplicated; F41.9 Anxiety disorder, unspecified; F31.81 Bipolar II disorder